=== PATIENT | female | born 1955 ===

== ENCOUNTER 2022-07-19 15:09 | Outpatient (REF) | payer OTHER, SELFPAY ==
--- NOTE | ~2022-07-19 | XR_ITS ---
EXAMINATION: LEFT HAND CLINICAL INFORMATION: Pain bilaterally COMPARISON: None TECHNIQUE: 3 views of left hand FINDINGS: There is mild diffuse osteopenia. There are changes of osteoarthritis in the first carpometacarpal joint. Soft tissues unremarkable. XR/XR hand RT min 3V IMPRESSION: Changes of osteoarthritis of the first carpometacarpal joint
--- NOTE | ~2022-07-19 | XR_ITS ---
EXAMINATION: LEFT HAND CLINICAL INFORMATION: Pain bilaterally COMPARISON: None TECHNIQUE: 3 views of left hand FINDINGS: There is mild diffuse osteopenia. There are changes of osteoarthritis in the first carpometacarpal joint. Soft tissues unremarkable. XR/XR hand LT min 3V IMPRESSION: Changes of osteoarthritis of the first carpometacarpal joint
== END 2022-07-19 15:10 | disposition home or self-care (01) ==
LOC: HO.HOSX 15:09
PROVIDERS: Visit Provider Physician Assistant
DX: M79.641 Pain in right hand (principal); M79.642 Pain in left hand
CPT/HCPCS: 73130

== ENCOUNTER 2022-07-23 08:33 | Outpatient (REF) | payer OTHER, SELFPAY ==
--- NOTE | ~2022-07-23 | MM_ITS ---
EXAMINATION: MM SCREENING DIGITAL BREAST TOMOSYNTHESIS, BILATERAL CLINICAL INFORMATION: Screening. Asymptomatic. COMPARISON: Mammography: 09/27/2018, 02/05/2016 TECHNIQUE: Digital breast tomosynthesis is performed in both the craniocaudal and mediolateral oblique views along with computer-aided detection (CAD). Synthesized 2D images are generated from the tomosynthesis. Additional left MLO view is provided. FINDINGS: There are scattered areas of fibroglandular density (ACR BI-RADS breast composition Category b). There are no significant masses, abnormal calcifications, or other abnormalities. Fine fibronodular parenchymal pattern is similar to prior studies. No developing density or architectural abnormality. Incidental low right axillary tail node is stable. The skin contours are smooth. No significant changes. MM/MM tomosynthesis screening BI IMPRESSION: No mammographic evidence of malignancy. ASSESSMENT: BI-RADS 2: Benign RECOMMENDATION: Routine annual mammography screening. This patient's information was entered into a reminder system with a target due date for their next mammogram.
[2022-07-23 09:08] LABS: MANUAL DIFF FLAG NO
[2022-07-23 10:03] LABS: Basophils Percent Auto 0.7 % (0-2); Eosinophils Absolute Auto 0.2 X10*3/uL (0.0-0.4); Eosinophils Percent Auto 2.7 % (0-4); Hematocrit 38.8 % (37.0-47.0); Hemoglobin 12.7 g/dl (12.0-16.0); Imm Gran Abs Auto 0.02 X10*3/uL (0.00-0.03); Imm Gran Pct Auto 0.3 % (0.0-0.4); Lymphocytes Absolute Auto 2.2 X10*3/uL (1.2-4.9); Lymphocytes Percent Auto 36.2 % (20-40); Mean Corpuscular HGB Conc 32.7 g/dl (31.0-35.0); Mean Corpuscular Hemoglobin 27.8 pg (27.0-33.0); Mean Corpuscular Volume 84.9 fL (80.0-98.0); Mean Platelet Volume 10.5 fL (9.4-12.3); Monocytes Absolute Auto 0.5 X10*3/uL (0.1-1.2); Monocytes Percent Auto 8.2 % (2-11); Neutrophils Absolute Auto 3.1 x10*3/uL (2.0-8.3); Neutrophils Percent Auto 51.9 % (45-73); Platelet Count 272 X10*3/uL (160-400); Red Blood Count 4.57 X10*6/uL (4.20-5.50); Red Cell Distribution Width 13.9 % (11.0-16.0)
[2022-07-23 10:35] LABS: Alanine Aminotransferase 15 U/L (0-31); Albumin Level 4.3 g/dL (3.5-5.0); Alkaline Phosphatase 89 U/L (39-117); Anion Gap 17 (12-20); Aspartate Amino Transferase 22 U/L (5-31); Bilirubin Total 0.6 mg/dL (0.0-1.0); Blood Urea Nitrogen 17 mg/dL (9-16); Calcium 9.4 mg/dL (8.4-10.2); Carbon Dioxide 21 mmol/L (22-29); Chloride 107 mmol/L (96-108); Cholesterol 200 mg/dL; Estimated Glomerular Filt Rate > 60; Glucose Random 95 mg/dL (60-115); HDL Cholesterol 56 mg/dL; LDL Cholesterol Calculated 106 mg/dl; Potassium 4.4 mmol/L (3.3-5.1); Sodium 141 mmol/L (135-145); Total Protein 7.4 g/dL (6.5-8.0); Triglycerides 191 mg/dL
[2022-07-23 10:57] LABS: TSH reflex Free T4 2.06 uIU/mL (0.32-4.0)
[2022-07-23 11:50] LABS: Vitamin B12 196 pg/mL (200-900)
[2022-07-23 15:16] LABS: Vitamin D 25-OH Total 11.3 ng/mL (>30)
== END 2022-07-23 08:34 | disposition home or self-care (01) ==
LOC: HO.MAMMO 08:33
PROVIDERS: PCP Family Medicine; Visit Provider Family Medicine
DX: D36.9 Benign neoplasm, unspecified site (principal); E55.9 Vitamin D deficiency, unspecified; E78.5 Hyperlipidemia, unspecified; I10 Essential (primary) hypertension; M25.50 Pain in unspecified joint; Z98.890 Other specified postprocedural states; Z12.31 Encounter for screening mammogram for malignant neoplasm of breast
CPT/HCPCS: 36415; 77063; 77067; 80053; 80061; 82306; 82607; 84443; 85025

== ENCOUNTER 2022-11-18 13:24 | Outpatient (REF) | payer OTHER, SELFPAY ==
--- NOTE | ~2022-11-18 | CT_ITS ---
EXAMINATION: CT CHEST SCREENING CLINICAL INFORMATION: Current smoker. 40 pack year history. 67 years old. COMPARISON: None available. TECHNIQUE: Multidetector volumetric CT imaging of the chest is performed without contrast using low dose technique. Additional 2D coronal and sagittal reformatted images and axial 3D maximum intensity projection (MIP) images are generated on the CT workstation. This CT examination was performed using dose optimization techniques as appropriate, variously including the following: *Automated exposure control *Adjustment of mA and/or kV according to patient size (this includes techniques or standardized protocols for targeted exams where dose is matched to indication/reason for exam; i.e. extremities or head) *Use of iterative reconstruction technique DLP: 65 mGy-cm FINDINGS: LUNGS: Central airways are patent. No significant bronchial wall thickening is seen. No bronchiectasis. No significant confluent parenchymal disease is seen. There is a region of some atelectasis/scar adjacent to the thoracic spine within the right lower lobe. There are some scattered sub-4 mm densities bilaterally. No significant emphysematous changes are seen. No suspicious lung nodules are appreciated. MEDIASTINUM: The visualized thyroid gland appears unremarkable. Heart normal size. No pericardial effusion. The ascending thoracic aorta measures up to 4.1 cm in diameter. No occlusive calcified plaque is seen. CORONARY ARTERY CALCIFICATION: Present. PLEURA: There is no pleural effusion. No pleural mass or thickening. AXILLA: No lymphadenopathy. UPPER ABDOMEN: Small hiatal hernia present. Patient appears be status post gastric surgery. Status post cholecystectomy. OSSEOUS STRUCTURES: No suspicious destructive bony lesions identified. Multilevel degenerative disc disease is seen. CT/CT lung screening IMPRESSION: No suspicious lung nodules identified. Enlarged ascending thoracic aorta to 4.1 cm in diameter. ASSESSMENT: Lung-RADS category 2: Benign RECOMMENDATION: Routine annual low-dose CT screening in 12 months.
== END 2022-11-18 13:25 | disposition home or self-care (01) ==
LOC: HO.CT 13:24
PROVIDERS: PCP Family Medicine; Visit Provider Physician Assistant Medical
DX: Z12.2 Encounter for screening for malignant neoplasm of respiratory organs (principal); F17.210 Nicotine dependence, cigarettes, uncomplicated
CPT/HCPCS: 71271; G0296

== ENCOUNTER 2023-11-08 15:10 | Outpatient (REF) | payer OTHER, MEDICARE, SELFPAY ==
[2023-11-08 16:17] LABS: MANUAL DIFF FLAG NO
[2023-11-08 16:23] LABS: Basophils Absolute Auto 0.1 X10*3/uL (0.0-0.2); Basophils Percent Auto 0.7 % (0-2); Eosinophils Absolute Auto 0.1 X10*3/uL (0.0-0.4); Eosinophils Percent Auto 1.9 % (0-4); Hematocrit 40.2 % (37.0-47.0); Hemoglobin 13.1 g/dl (12.0-16.0); Imm Gran Abs Auto 0.02 X10*3/uL (0.00-0.03); Imm Gran Pct Auto 0.3 % (0.0-0.4); Lymphocytes Absolute Auto 3.1 X10*3/uL (1.2-4.9); Lymphocytes Percent Auto 42.9 % (20-40); Mean Corpuscular HGB Conc 32.6 g/dl (31.0-35.0); Mean Corpuscular Hemoglobin 27.8 pg (27.0-33.0); Mean Corpuscular Volume 85.4 fL (80.0-98.0); Mean Platelet Volume 10.5 fL (9.4-12.3); Monocytes Absolute Auto 0.7 X10*3/uL (0.1-1.2); Monocytes Percent Auto 9.2 % (2-11); Neutrophils Absolute Auto 3.3 x10*3/uL (2.0-8.3); Platelet Count 300 X10*3/uL (160-400); Red Blood Count 4.71 X10*6/uL (4.20-5.50); Red Cell Distribution Width 13.2 % (11.0-16.0); White Blood Count 7.3 X10*3/uL (4.8-10.8)
[2023-11-08 17:12] LABS: Erythrocyte Sedimentation Rate 29 MM/HR (0-20)
[2023-11-08 17:42] LABS: Rheumatoid Factor < 13.0 IU/mL (<15.0)
[2023-11-08 17:55] LABS: Alanine Aminotransferase 17 U/L (0-31); Albumin Level 4.2 g/dL (3.5-5.0); Alkaline Phosphatase 95 U/L (39-117); Anion Gap 14 (12-20); Aspartate Amino Transferase 27 U/L (5-31); Bilirubin Direct 0.1 mg/dL (0.0-0.5); Bilirubin Total 0.3 mg/dL (0.0-1.0); Blood Urea Nitrogen 19 mg/dL (9-16); C Reactive Protein 0.16 mg/dL (< or = 0.50); Calcium 9.6 mg/dL (8.4-10.2); Carbon Dioxide 21 mmol/L (22-29); Chloride 108 mmol/L (96-108); Cholesterol 318 mg/dL (<200); Estimated Glomerular Filt Rate 49; Glucose Random 100 mg/dL (60-115); HDL Cholesterol 50 mg/dL (>40); LDL Cholesterol Calculated 190 mg/dL (<100); Magnesium 1.9 mg/dL (1.6-2.6); Potassium 4.2 mmol/L (3.3-5.1); Sodium 139 mmol/L (135-145); Total Protein 7.8 g/dL (6.5-8.0); Triglycerides 394 mg/dL (<150)
[2023-11-08 18:11] LABS: Vitamin B12 234 pg/mL (200-900)
[2023-11-08 18:19] LABS: Ferritin 9 ng/mL (10-250); TSH reflex Free T4 2.15 uIU/mL (0.32-4.0); Vitamin D 25-OH Total 10.5 ng/mL (>30)
[2023-11-15 15:27] LABS: ANA Pattern 2 Nuclear, Homogeneous; Anti Nuclear Antibody Screen POSITIVE (NEGATIVE); Anti Nuclear Antibody Titer 1:40 titer
== END 2023-11-08 15:11 | disposition home or self-care (01) ==
LOC: HO.HHCL 15:10
PROVIDERS: Visit Provider Family Medicine
DX: E78.5 Hyperlipidemia, unspecified (principal); M79.18 Myalgia, other site; G89.29 Other chronic pain; R53.83 Other fatigue; D50.9 Iron deficiency anemia, unspecified; Z98.84 Bariatric surgery status
CPT/HCPCS: 36415; 80048; 80061; 80076; 82306; 82607; 82728; 82746; 83735; 84443; 85025; 85652; 86038; 86039; 86140; 86431

== ENCOUNTER 2023-11-24 14:05 | Outpatient (REF) | payer OTHER, SELFPAY ==
--- NOTE | ~2023-11-24 | MM_ITS ---
EXAMINATION: BONE DENSITOMETRY CLINICAL INDICATION: Postmenopausal. COMPARISON: This is the patient's baseline examination. TECHNIQUE: Using a [employer] DXA System (software version: 13.1) manufactured by [employer], dual-energy x-ray absorptiometry was performed of the lumbar spine and left hip. The images are of good technical quality. Summary results are attached. FINDINGS: LEFT FEMUR, NECK: BMD 0.745 g/cm2, Z-score -1.0, T-score -2.1, osteopenia. LEFT FEMUR, TOTAL: BMD 0.788 g/cm2, Z-score -0.9, T-score -1.7, osteopenia. AP SPINE L1-L3 (excluding L4): The data of L1-L4 has been changed to exclude the L4 vertebral body, because degenerative sclerosis at this level may cause overestimation of lumbar spine density. BMD 0.854 g/cm2, Z-score -1.7, T-score -2.6, osteoporosis. IDENTIFIED RISK FACTORS: Menopause, height loss, low calcium intake, thiazide, current smoker. HISTORY OF FRACTURE: None listed. MEDICATIONS: Vitamin D. MM/XR DEXA axial skeleton IMPRESSION: 1. DIAGNOSIS: Osteoporosis based on the lowest T-score value of -2.6 in the lumbar spine applying World Health Organization criteria. 2. 10-YEAR FRACTURE RISK PREDICTION, FRAX: According to the guidelines, FRAX calculation should only be performed on patients in the osteopenia bone density category. Therefore, FRAX was not performed on this patient. 3. Treatment Recommendations: NOF guidelines recommend consideration for treatment in postmenopausal women and men age 50 and older presenting with the following: -A hip or vertebral (clinical or morphometric) fracture. -T-score less than or equal to -2.5 at the femoral neck or spine after appropriate evaluation to exclude secondary causes. -Low bone mass at the hip or spine and a 10-year fracture probability by FRAX of greater than or equal to 3% for hip fracture or greater than or equal to 20% for major osteoporotic fracture based on the [place] adapted WHO algorithm. 4. Other Recommendations: All treatment decisions require clinical judgment and consideration of individual patient factors, including patient preferences, comorbidities, previous drug use, risk factors not captured in the FRAX model (e.g. frailty, falls, vitamin D deficiency, increased bone turnover, interval significant decline in bone density) and possible under or overestimation of fracture risk by FRAX. Additional medical evaluation for secondary cause of low bone mineral density may be appropriate. FUTURE SCAN RECOMMENDATION: People with diagnosed cases of osteoporosis or at high risk for fracture should have regular bone mineral density tests. For patients eligible for Medicare, routine testing is allowed once every 2 years. The testing frequency can be increased to one year for patients who have rapidly progressing disease, those who are receiving or discontinuing medical therapy to restore bone mass, or have additional risk factors.
== END 2023-11-24 14:06 | disposition home or self-care (01) ==
LOC: HO.MAMMO 14:05
PROVIDERS: PCP Family Medicine; Visit Provider Family Medicine
DX: Z13.820 Encounter for screening for osteoporosis (principal); Z78.0 Asymptomatic menopausal state
CPT/HCPCS: 77080

== ENCOUNTER 2023-12-13 14:47 | Outpatient (AMB) | payer OTHER, SELFPAY ==
--- NOTE | 2023-12-13 14:52 | A.OFFVIS_ITS ---
Intake Vital Signs 12/13/23 14:54 Height 5 ft 5 in Weight 212 lb 11.937 oz BMI 35.4 BP 126/70 Blood Pressure Location Rt brachial Position Sitting Pulse 67 Pulse Source Pulse Oximeter Pulse Oximetry (%) 100 Oxygen Delivery Method Room Air Intake Visit Reasons: chronic myofascial pain Intake Note: New patient presents today for consult, referred by PCP. C/o whole body pain, julieth in low back, fatigue and L hand joint deformity. Saw [facility] ortho 2021 States she was diagnosed with osteoporosis and prescribed alendronate. She took it one time and it caused her to have jaw pain so she self stopped it. 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 Patient stated that over days she has been getting progressively more stiff especially with her hands, shoulders, neck, low back, knees. She has morning stiffness lasting about 10 minutes impro holger with moving around, she also gets if see sits down after a long day. Sometimes she has difficulty reaching with her shoulders above her head. She denies any swollen joints. Denies any skin rashes. Denies any fevers or weight loss. He stated that she was getting a dental procedure recently she was prescribed a steroid for 3 days and it significantly helped her symptoms. States that her daughter is diagnosed with rheumatoid arthritis. 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 Female Reproductive History Menstrual Total pregnancies: 2 Full term: 1 Ab induced: 1 Review of Systems Const Reports fatigue and Reports weakness Musc Reports arthralgias, Reports limited range of motion and Reports stiffness Skin/Breast Reports alopecia Neuro Reports weakness Psych Reports depression Endo Reports fatigue Physical Exam Vital Signs: Last Vital Signs Pulse 67 12/13/23 14:54 BP 126/70 12/13/23 14:54 Pulse Ox 100 12/13/23 14:54 Oxygen Delivery Method Room Air 12/13/23 14:54 BMI result Body Mass Index 35.4 Const General: cooperative, healthy appearing and comfortable Nutritional Appearance: obese Orientation/consciousness: patient oriented x3 Limitations: no limitations HEENT Head: Yes normocephalic and Yes atraumatic Mouth: moist mucous membranes Resp Effort & Inspection: normal respiratory effort and able to speak in complete sentences Auscultation: clear to auscultation bilaterally Cardio Rate: regular rate Skin General skin exam: no rashes or lesions noted Neuro General: patient oriented x3 Extrem Other: Osteoarthritic changes of both hands with squaring of bilateral 1st CMC joints No active synovitis both hands no swollen or tender joints both hands Normal range of motion of hands, wrists, elbows, shoulders without pain Normal range of motion of both knees without pain Normal nailfold capillaroscopy Assessment & Plan Assessment & Plan (1) OLYA positive: Code(s): R76.8 - Other specified abnormal immunological findings in serum Plan: This is a 68-year-old female who presents for evaluation of diffuse joint pain and stiffness. Clinical picture rather consistent with degenerative arthritis, however patient had a positive OLYA as well as mildly elevated inflammatory markers. Will order comprehensive serology to screen for underlying autoimmune rheumatic disease. Follow-up in about 4 weeks Plan I spent 47 minutes reviewing patient's chart, evaluating patient, ordering diagnostic workup, counseling patient and documenting in the chart Orders: Orders Anti Extractable Nuclear Ag Today M32.9 - Systemic lupus erythematosus, unspecified Anti DNA DS Antibody Today M32.9 - Systemic lupus erythematosus, unspecified Complement C3 Today M32.9 - Systemic lupus erythematosus, unspecified Complement C4 Today M32.9 - Systemic lupus erythematosus, unspecified C Reactive Protein Today M32.9 - Systemic lupus erythematosus, unspecified DNA Double Stranded-Crithidia Today M32.9 - Systemic lupus erythematosus, unspecified Erythrocyte Sedimentation Rate Today M32.9 - Systemic lupus erythematosus, unspecified Protein Creatinine Ratio, Ur Today M32.9 - Systemic lupus erythematosus, unspecified Sjogren's Antibodies Today M32.9 - Systemic lupus erythematosus, unspecified UA w Microscopic Today M32.9 - Systemic lupus erythematosus, unspecified Complete Blood Count Auto Diff Today M32.9 - Systemic lupus erythematosus, unspecified Hepatitis A,B,C Profile Today Z11.59 - Encounter for screening for other viral diseases Cyclic Citrullinated Peptide Today M25.50 - Pain in unspecified joint Thyroid Peroxidase Antibodies Today E07.9 - Disorder of thyroid, unspecified Comprehensive Met. Panel Today M32.9 - Systemic lupus erythematosus, unspecified Immunofixation Pnl, Serum Today M32.9 - Systemic lupus erythematosus, unspecified Protein Electrophoresis, Serum Today M32.9 - Systemic lupus erythematosus, unspecified Thyroglobulin Antibodies Today E07.9 - Disorder of thyroid, unspecified Coding Level of Care Code New Pt Level 4 (35500) Diagnoses OLYA positive R76.8
[2023-12-13 14:54] VITALS: BP 126/70; PULSE 67; O2SAT 100; BMI 35.4
== END 2023-12-13 15:19 | disposition home or self-care (01) ==
PROVIDERS: PCP Family Medicine; Visit Provider Student in an Organized Health Care Education/Training Program
DX: R76.8 Other specified abnormal immunological findings in serum (principal)
CPT/HCPCS: 99204

== ENCOUNTER 2023-12-13 14:47 | Outpatient (REF) | payer OTHER, MEDICARE, SELFPAY ==
[2023-12-13 16:11] LABS: MANUAL DIFF FLAG NO
[2023-12-13 17:36] LABS: Basophils Percent Auto 0.5 % (0-2); Eosinophils Absolute Auto 0.2 X10*3/uL (0.0-0.4); Eosinophils Percent Auto 2.5 % (0-4); Hematocrit 36.4 % (37.0-47.0); Imm Gran Abs Auto 0.01 X10*3/uL (0.00-0.03); Imm Gran Pct Auto 0.2 % (0.0-0.4); Lymphocytes Absolute Auto 2.4 X10*3/uL (1.2-4.9); Lymphocytes Percent Auto 39.5 % (20-40); Mean Corpuscular Hemoglobin 28.1 pg (27.0-33.0); Mean Corpuscular Volume 85.2 fL (80.0-98.0); Mean Platelet Volume 10.4 fL (9.4-12.3); Monocytes Absolute Auto 0.5 X10*3/uL (0.1-1.2); Monocytes Percent Auto 8.2 % (2-11); Neutrophils Absolute Auto 2.9 x10*3/uL (2.0-8.3); Neutrophils Percent Auto 49.1 % (45-73); Platelet Count 293 X10*3/uL (160-400); Red Blood Count 4.27 X10*6/uL (4.20-5.50); Red Cell Distribution Width 13.5 % (11.0-16.0)
[2023-12-13 17:46] LABS: Appearance Urine Cloudy; Color Urine Yellow; Glucose Urine UA Negative (Negative); Leukocyte Esterase Urine Trace (Negative); Nitrite Urine Negative (Negative); PH 5.5 (5.0-9.0); Specific Gravity - Urine 1.025 (1.005-1.025); UMIC TRIGGER UA YES; Urine Blood Negative (Negative); Urine Ketones Negative (Negative); Urine Protein 30 (1+) mg/dL (Neg-Trace)
[2023-12-13 18:05] LABS: Protein/Creatinine Ratio, Ur 0.21 (<0.2); Total Protein Urine Random 30 mg/dL (<12)
[2023-12-13 18:07] LABS: Bacteria Urine 2+ (None Seen); Hyaline Casts Urine 0-2 /LPF (0-2); RBC Urine 0-2 /HPF (0-2); WBC Urine 0-5 /HPF (0-5)
[2023-12-13 18:08] LABS: Alanine Aminotransferase 13 U/L (0-31); Alkaline Phosphatase 79 U/L (39-117); Anion Gap 15 (12-20); Aspartate Amino Transferase 20 U/L (5-31); Bilirubin Total 0.3 mg/dL (0.0-1.0); Blood Urea Nitrogen 17 mg/dL (9-16); C Reactive Protein 0.32 mg/dL (< or = 0.50); Calcium 9.4 mg/dL (8.4-10.2); Carbon Dioxide 24 mmol/L (22-29); Chloride 108 mmol/L (96-108); Estimated Glomerular Filt Rate > 60; Glucose Random 84 mg/dL (60-115); Potassium 3.7 mmol/L (3.3-5.1); Sodium 143 mmol/L (135-145); Total Protein 7.7 g/dL (6.5-8.0)
[2023-12-13 18:16] LABS: Erythrocyte Sedimentation Rate 55 MM/HR (0-20)
[2023-12-14 07:34] LABS: HBS Num1 289.71 mIU/mL (0-7.99); HBc Num1 2.88 S/CO (0.00-0.79); HBsAGNum1 0.27 S/CO (0.00-0.99); Hepatitis A Antibody IgM 0.17 Index (0-0.79); Hepatitis B Surface Antigen Negative (Negative); ~Hepatitis A Antibody IgM Nonreactive (Nonreactive); ~Hepatitis B Surface Antibody REACTIVE (Nonreactive); ~Hepatitis C Antibody Reactive (Nonreactive)
[2023-12-14 08:30] LABS: HBc Num2 2.87 S/CO; HBc Num3 2.78 S/CO; Hepatitis B Core Antibody Reactive (Nonreactive)
[2023-12-14 11:43] LABS: Complement C3 126 mg/dL (83-193)
[2023-12-14 21:53] LABS: Thyroglobulin Antibodies <1 IU/mL (< or = 1); Thyroid Peroxidase Antibodies <1 IU/mL (<9)
[2023-12-15 12:19] LABS: IgA 233 mg/dL (70-320); IgG 1147 mg/dL (600-1540); IgM 63 mg/dL (50-300)
[2023-12-15 15:33] LABS: Cyclic Citrullinated Peptide <16 UNITS
[2023-12-15 18:53] LABS: Prot Elec - Albumin 3.8 g/dL (3.8-4.8); Prot Elec - Alpha1 0.4 g/dL (0.2-0.3); Prot Elec - Alpha2 1.2 g/dL (0.5-0.9); Prot Elec - Beta 1 0.5 g/dL (0.4-0.6); Prot Elec - Beta 2 0.5 g/dL (0.2-0.5); Prot Elec - Total Protein 7.2 g/dL (6.1-8.1)
[2023-12-15 19:18] LABS: Anti DNA DS Antibody 3 IU/mL; Antibody to SS-A Antigen <1.0 NEG AI (<1.0 NEG); Antibody to SS-B Antigen <1.0 NEG AI (<1.0 NEG); SM/Ribonucleoprotein Ab <1.0 NEG AI (<1.0 NEG); Smith Protein <1.0 NEG AI (<1.0 NEG)
[2023-12-19 06:52] LABS: DNAds, Crithidia Antibody Negative (Negative)
== END 2023-12-13 14:48 | disposition home or self-care (01) ==
LOC: HO.LAB 14:47
PROVIDERS: PCP Family Medicine; Visit Provider Student in an Organized Health Care Education/Training Program
DX: M32.9 Systemic lupus erythematosus, unspecified (principal); M25.50 Pain in unspecified joint; Z11.59 Encounter for screening for other viral diseases; E07.9 Disorder of thyroid, unspecified; R53.83 Other fatigue; M81.0 Age-related osteoporosis without current pathological fracture; M21.942 Unspecified acquired deformity of hand, left hand
CPT/HCPCS: 36415; 80053; 81001; 82570; 82784; 84156; 84165; 85025; 85652; 86140; 86160; 86200; 86225; 86235; 86255; 86334; 86376; 86704; 86706; 86709; 86800; 86803; 87340

== ENCOUNTER 2023-12-20 12:39 | Outpatient (REF) | payer MEDICARE, OTHER, SELFPAY ==
--- NOTE | ~2023-12-20 | CT_ITS ---
EXAMINATION: CT CHEST SCREENING CLINICAL INFORMATION: Current smoker at 1 pack per day with history of 56 pack year. COMPARISON: CT lung screening 11/18/2022. TECHNIQUE: Multidetector volumetric CT imaging of the chest is performed without contrast using low dose technique. Additional 2D coronal and sagittal reformatted images and axial 3D maximum intensity projection (MIP) images are generated on the CT workstation. This CT examination was performed using dose optimization techniques as appropriate, variously including the following: *Automated exposure control *Adjustment of mA and/or kV according to patient size (this includes techniques or standardized protocols for targeted exams where dose is matched to indication/reason for exam; i.e. extremities or head) *Use of iterative reconstruction technique DLP: 61 mGy-cm FINDINGS: LUNGS: There is mild emphysema and bronchial wall thickening. A few scattered pulmonary micronodules are again seen and unchanged, none larger than 3 mm. Tsai images have been saved. The lungs are otherwise clear with no evidence of inflammation or concerning nodules. MEDIASTINUM: The ascending aorta remains prominent in size at 4.1 cm. CORONARY ARTERY CALCIFICATION: Moderate. PLEURA: There is no pleural effusion. No pleural mass or thickening. AXILLA: No lymphadenopathy. UPPER ABDOMEN: Status post cholecystectomy and gastric bypass. OSSEOUS STRUCTURES: Degenerative changes are present in the spine. CT/CT lung screening IMPRESSION: No concerning evidence of malignancy. There are a few unchanged pulmonary micronodules. Mild emphysema and stable 4.1 cm dilatation ascending aorta. Maximal dimension for a patient of 67 years of age is 4.2 cm.* ASSESSMENT: Lung-RADS category 2: Benign. RECOMMENDATION: Routine annual low-dose CT screening in 12 months. *Normal aortic diameters (in millimeters) Ascending aorta: 31+0.16 x age. Descending aorta: 21+0.16 x age. Reference: [employer] Cardiovascular J 2006 February; 40 (3): 175-178
== END 2023-12-20 12:40 | disposition home or self-care (01) ==
LOC: HO.CT 12:39
PROVIDERS: PCP Family Medicine; Visit Provider Nurse Practitioner Family
DX: Z12.2 Encounter for screening for malignant neoplasm of respiratory organs (principal); F17.210 Nicotine dependence, cigarettes, uncomplicated
CPT/HCPCS: 71271

== ENCOUNTER 2024-02-02 08:48 | Outpatient (REF) | payer OTHER, SELFPAY ==
--- NOTE | ~2024-02-02 | XR_ITS ---
EXAMINATION: XR FOOT, RIGHT CLINICAL INFORMATION: Right foot pain. Pain between second and third toes. COMPARISON: None available. TECHNIQUE: AP, lateral, and oblique views of the right foot. FINDINGS: Tarsometatarsal joints: there is osteoarthritis of the joints best appreciated on the lateral view likely involving at least the second and third tarsometatarsal joints manifested by marginal osteophytes and nonuniform joint space narrowing. There is a well-corticated area of ossification along the dorsal aspect of the naviculocuneiform joint perhaps related to old fracture or ossification of the capsule related to degenerative change or old trauma. Small calcaneal spurs. Remaining bones joints and soft tissues are unremarkable XR/XR foot RT min 3V IMPRESSION: 1. No acute abnormality. 2. Osteoarthritis of the tarsometatarsal joints. 3. Ossification along the dorsal aspect of the naviculocuneiform joint perhaps related to degenerative change or old trauma. 4. Small calcaneal spurs.
== END 2024-02-02 08:49 | disposition home or self-care (01) ==
LOC: HO.XRAY 08:48
PROVIDERS: PCP Family Medicine; Visit Provider Family Medicine
DX: M79.671 Pain in right foot (principal)
CPT/HCPCS: 73630

== ENCOUNTER 2024-02-12 14:31 | Outpatient (AMB) | payer OTHER, SELFPAY ==
--- NOTE | 2024-02-12 14:33 | MHC.OFFVIS ---
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 She is a smoker. She has also background of hyperlipidemia and hypertension. She is on hydrochlorothiazide 25 mg daily and atorvastatin 40 mg daily last LDL cholesterol was 190 after which atorvastatin was added. She had a screening CT scan which showed ascending aortic dilatation 4.1 cm. She is overweight and has dyspnea on exertion. She is saying she is able to walk 100 ft and then gets out of breath. She is saying this is due to her weight and smoking. No chest discomfort. She is saying she is using Chantix and trying to quit and struggles because her smokes and keep cigarettes inside the house which makes it difficult for her to quit. She also had sprained her ankle and currently has Larry wrap on the ankle and is unable to exercise. 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 Review of Systems Const Denies chills, Denies fatigue, Denies fever(s), Denies frequent falls, Denies weakness, Denies weight gain and Denies weight loss ENT Denies dizziness Card Denies chest pain, Denies leg edema, Denies lightheadedness, Denies palpitations, Denies dyspnea, Denies dyspnea on exertion and Denies orthopnea Resp Denies cough, Denies dyspnea and Denies dyspnea on exertion GI Denies bloating and Denies change in bowel habits Musc Denies muscle weakness, Denies numbness and Denies tingling Neuro Denies dizziness, Denies frequent falls, Denies numbness, Denies tingling and Denies weakness Endo Denies fatigue and Denies palpitations Physical Exam Vital Signs: Last Vital Signs Pulse 86 02/12/24 14:34 BP 130/70 02/12/24 14:34 BMI result Body Mass Index 35.3 GENERAL APPEARANCE: in no acute distress, pleasant. NECK: no carotid bruit, no jugular venous distention. SKIN: no suspicious lesions, warm and dry. HEART: no murmurs, regular rate and rhythm. LUNGS: clear to auscultation bilaterally. ABDOMEN: soft, nontender. EXTREMITIES: no edema. PERIPHERAL PULSES: equal. NEUROLOGIC: No gross deficits, AAO X 3 Office Procedures EKG Details: Sinus rhythm 86 beats per minute, normal axis, normal ECG, QTC 423 milliseconds. [id number], Complete Assessment & Plan Assessment & Plan (1) Ascending aorta dilatation: Code(s): I77.810 - Thoracic aortic ectasia Category: Medical (2) Essential hypertension: Code(s): I10 - Essential (primary) hypertension Category: Medical (3) Hyperlipidemia: Code(s): E78.5 - Hyperlipidemia, unspecified Category: Medical Plan 68-year-old female with background history of tobacco use, hypertension and hyperlipidemia presenting for abdominal CT chest showing mild ascending aortic dilatation of 4.1 cm. Aortic disease is associated with smoking, hypertension and hyperlipidemia and she has all 3 risk factors currently. Her blood pressure is currently controlled. Her LDL cholesterol was 190 and she has been started on atorvastatin 40 mg daily. She should have repeat fasting lipid panel. We discussed about smoking cessation and she is seriously thinking about it and is actively using Chantix. She has dyspnea on exertion with 100 ft exercise capacity currently. She thinks this is due to her weight and smoking. I have explained to her that we need to rule out coronary disease in her with a stress test. She has a sprained ankle currently and is unable to exercise. Will give her some time to recover and then arrange exercise stress test for her. If she cannot exercise then we will do a Lexiscan. I have explained this to the patient. She will follow-up with us in few months. Thank you for allowing me to participate in the care of your patient. Please feel free to contact me if you have any questions. Orders: Orders Lipid Panel Today E78.5 - Hyperlipidemia, unspecified Coding Level of Care Code Est Pt Level 4 (68323) Diagnoses Ascending aorta dilatation I77.810 Essential hypertension I10 Hyperlipidemia E78.5 CPT Codes EKG - CPT: 70476-[id number], Complete ([id number])
[2024-02-12 14:34] VITALS: BP 130/70; PULSE 86; BMI 35.3
== END 2024-02-12 15:00 | disposition home or self-care (01) ==
PROVIDERS: PCP Family Medicine; Visit Provider Internal Medicine Cardiovascular Disease
DX: I77.810 Thoracic aortic ectasia (principal); I10 Essential (primary) hypertension; E78.5 Hyperlipidemia, unspecified
CPT/HCPCS: 93010; 99214

== ENCOUNTER → 2024-02-12 14:31 | Outpatient (BNVA) | payer OTHER, SELFPAY | PROVIDERS: PCP Family Medicine; Visit Provider Internal Medicine Cardiovascular Disease | DX: I77.810 Thoracic aortic ectasia (principal); I10 Essential (primary) hypertension; E78.5 Hyperlipidemia, unspecified; Z79.899 Other long term (current) drug therapy | CPT/HCPCS: 93005 ==

== ENCOUNTER 2024-10-14 13:51 | Outpatient (REF) | payer OTHER, SELFPAY ==
--- OUTSIDE RECORDS SUMMARY | 2024-10-14 15:21 | XMS_ITS | Encounter Summary ---
Author Organization [employer] Address [address] [place] [address] [address] [place] [address] Care Team Providers Care Program Management Specialist Name Role Phone Gillian Randolph MD Primary Care Provider [phone] Nikos Can Unavailable Kang Gayle MD Unavailable Encounter Details Date Type Department Care Team (Late st Contact Info) Description 12/28/2023 Telephone [facility] [address] [place], [place] [phone] Gillian Randolph MD [address] [place], [place] [phone] Social History Tobacco Use Types Packs/Day Years Used Date Smoking Tobacco: Some Days Cigarettes Comments Unknown Sex and Gender Information Value Date Recorded Sex Assigned at Female 07/11/2022 10:15 AM EDT Legal Sex Female 10:15 AM EDT Gender Identity Choose not to disclose 10:15 AM EDT Sexual Orientation Choose not to disclose 2021 10:15 AM EDT documented as of this encounter Miscellaneous Notes * Telephone Encounter - Maria Alejandra Black RN - 12/28/2023 11:53 AM EDT Please review message below. Currently awaiting records from [facility] [place] but last imaging in [facility] was aCT scan for lung cancer screening done on 12/20/23 indicating stable 4.1 cm dilation of ascending aorta. * Telephone Encounter - Sarah Alvarez LPN - 12/28/2023 8:57 AM EDT Critical result line call received at this time. Nikki with [facility] Pulmon[facility] calling to report critical findings. Ct Scan with incidental findings of Thoracic aneurysm. Please update PCP now and follow with patient. Full report faxed to [phone] now. documented in this encounter Plan of Treatment Upcoming Encounters Date Type Department Care Team (Late st Contact Info) Description 10/23/2024 2:15 PM EST Office Visit [facility] [address] [place] [address] Gillian Randolph MD [address] [place] [address] documented as of this encounter Visit Diagnoses Not on filedocumented in this encounter Care Teams Program Management Specialist Relationship Specialty Start Date End Date Gillian Randolph MD [address] [place] [address] PCP - General Family Medicine 09/11/18 Nikos Can [address] [place] [address] Cardiology 09/24/24 Kang Gayle MD [address] [place] [address] Rheumatology 09/24/24 documented as of this encounter
--- OUTSIDE RECORDS SUMMARY | 2024-10-14 15:21 | XMS_ITS | Encounter Summary ---
Author Organization [facility] [employer] Address [address] [place] [address] [place] [address] Care Team Providers Care Band And Cuff Cutter Name Role Phone Gillian Randolph MD Primary Care Provider +1- [phone] Nikos Can Unavailable Kang Gayle MD Unavailable Encounter Details Date Type Department Care Team (Late st Contact Info) Description 11/08/2022 Abstract [facility] MEDICINE [address] [place] [address] [phone] Gillian Randolph MD [address] [place] [address] [phone] Social History Tobacco Use Types Packs/Day Years Used Date Smoking Tobacco: Never Assessed Comments Unknown Sex and Gender Information Value Date Recorded Sex Assigned at Female 07/11/2022 10:15 AM EDT Legal Sex Female 10:15 AM EDT Gender Identity Choose not to disclose 10:15 AM EDT Sexual Orientation Choose not to disclose 2021 10:15 AM EDT documented as of this encounter Plan of Treatment Upcoming Encounters Date Type Department Care Team (Late st Contact Info) Description 10/23/2024 2:15 PM EST Office Visit [facility] MEDICINE [address] [place] [address] [phone] Gillian Randolph MD [address] [place] [address] [phone] documented as of this encounter Procedures Procedure Name Priority Date/Time Associated Diagnosis Comments MAMMOGRAPHY Routine 07/23/2022 COLONOSCOPY Routine 02/07/2019 PAP SMEAR Routine 08/25/2016 12:00 AM EST documented in this encounter Results * Mammography (07/23/2022) Mammogram BIRADS 2 Anatomical Region Laterality Modality Other Historical Provider HEALTH MAINTENANCE Final Result * Colonoscopy (02/07/2019) Colonoscopy tubular adenoma with Dr. Harper Historical Provider HEALTH MAINTENANCE Final Result * Pap Smear (08/25/2016 12:00 AM EST) Swab [facility] Provider LAB CYTOLOGY ORDERABLES F inal Result IMAGING documented in this encounter Visit Diagnoses Not on filedocumented in this encounter Care Teams Band And Cuff Cutter Relationship Specialty Start Date End Date Gillian Randolph MD [address] [place] [phone] PCP - General Family Medicine 09/11/18 Nikos Can [address] [place] [address] Cardiology 09/24/24 Kang Gayle MD [address] [place] [address] Rheumatology 09/24/24 documented as of this encounter
--- OUTSIDE RECORDS SUMMARY | 2024-10-14 15:21 | XMS_ITS | Encounter Summary ---
Author Organization [employer] Address [address] [place] [address] Care Team Providers Care Associate Professor Of Literature Name Role Phone Gillian Randolph MD Primary Care Provider +1- [phone] Nikos Can Unavailable Kang Gayle MD Unavailable Reason for Visit * Reason Onset Date Comments Medication Question 05/31/2024 Encounter Details Date Type Department Care Team (Late st Contact Info) Description 05/31/2024 Telephone [facility] MEDICINE [address] [place], [place] [phone] Gillian Randolph MD [address] [place], [place] [phone] Medication Question Social History Tobacco Use Types Packs/Day Years [...] encounter Miscellaneous Notes * Telephone Encounter - Vinita Palacio - 05/31/2024 11:46 AM EDT Tc from pt requesting med refill for medication sertraline (Zoloft) 50 MG tablet . Medication is not on recent med list. Pharmacy: [facility] #[facility] NANDA [address] documented in this encounter Plan of Treatment Upcoming Encounters Date Type Department Care Team (Late st Contact Info) Description 10/23/2024 2:15 PM EST Office Visit [facility] MEDICINE [address] [place] [address] Gillian Randolph MD [address] [place] [address] documented as of this encounter Visit Diagnoses Not on filedocumented in this encounter Care Teams Associate Professor Of Literature Relationship Specialty Start Date End Date Gillian Randolph MD [address] [place], [place] [phone] PCP - General Family Medicine 09/11/18 Nikos Can [address] [place] [address] Cardiology 09/24/24 Kang Gayle MD [address] [place] [address] Rheumatology 09/24/24 documented as of this encounter
--- OUTSIDE RECORDS SUMMARY | 2024-10-14 15:21 | XMS_ITS | Encounter Summary ---
Author Organization [facility] [employer] Address [address] [place] [address] 7 [place] [address] Care Team Providers Care Senior Loan Officer Name Role Phone Gillian Randolph MD Primary Care Provider +1- [phone] Nikos Can Unavailable Kang Gayle MD Unavailable Encounter Details Date Type Department Care Team (Late st Contact Info) Description 01/03/2023 Orders Only [facility] PEDS [address] [place], [place] [phone] Marilu Bell LPN Social History Tobacco Use Types Packs/Day Years [...] Description 10/23/2024 2:15 PM EST Office Visit [facility] MEDICINE [address] [place] [address] Gillian Randolph MD [address] [place], [place] [phone] documented as of this encounter Visit Diagnoses Not on filedocumented in this encounter Care Teams Senior Loan Officer Relationship Specialty Start Date End Date Gillian Randolph MD [address] [place], [place] [phone] PCP - General Family Medicine 09/11/18 Nikos Can [address] [place] [address] Cardiology 09/24/24 Kang Gayle MD [address] [place] [address] Rheumatology 09/24/24 documented as of this encounter
--- OUTSIDE RECORDS SUMMARY | 2024-10-14 15:21 | XMS_ITS | Encounter Summary ---
Author Organization [employer] Address [address] [place] [address] 7 [place] [address] Care Team Providers Care Technical Training Specialist Name Role Phone Gillian Randolph MD Primary Care Provider +1- [phone] Nikos Can Unavailable Kang Gayle MD Unavailable Reason for Visit * Reason Comments Pre-visit Planning Pre-visit planning - LVM Encounter Details Date Type Department Care Team ([facility] st Contact Info) Description 10/10/2024 Patient Outreach [facility] MEDICINE [address] [place], [place] [phone] Gillian Randolph MD [address] [place], [place] [phone] Pre-visit Planning (Pre-visit planning - LVM ) Social History Tobacco Use Types Packs/Day Years Used Date Smoking Tobacco: Some Days Cigarettes Comments Unknown Sex and Gender Information Value Date Recorded Sex Assigned at Female 07/11/2022 10:15 AM EDT Legal Sex Female 10:15 AM EDT Gender Identity Choose not to disclose 10:15 AM EDT Sexual Orientation Choose not to disclose 2021 10:15 AM EDT documented as of this encounter Progress Notes * Carmel Campbell - 10/10/2024 9:46 AM EST CLEMENTINE Segura placed outbound call to patient to complete pre-visit planning. No answer at this time. Patient name and were not confirmed. CC left voicemail requesting return call. Direct contact information provided. documented in this encounter Plan of Treatment Upcoming Encounters Date Type Department Care Team (Late st Contact Info) Description 10/23/2024 2:15 PM EST Office Visit [facility] MED[facility]INE [address] [place] [address] Gillian Randolph MD [address] [place] [address] documented as of this encounter Visit Diagnoses Not on filedocumented in this encounter Care Teams Technical Training Specialist Relationship Specialty Start Date End Date Gillian Randolph MD [address] [place], [place] [phone] PCP - General Family Medicine 09/11/18 Nikos Can [address] [place] [address] Cardiology 09/24/24 Kang Gayle MD [address] [place] [address] Rheumatology 09/24/24 documented as of this encounter
--- OUTSIDE RECORDS SUMMARY | 2024-10-14 15:21 | XMS_ITS | Encounter Summary ---
Author Organization [employer] Address [address] [place] [address] 7t [place] [address] Care Team Providers Care Manager Of Learning Name Role Phone Gillian Randolph MD Primary Care Provider +1- [phone] Nikos Can Unavailable Kang Gayle MD Unavailable Reason for Visit * Reason Onset Date Comments Breast Cancer Screening 09/27/2024 Encounter Details Date Type Department Care Team ([facility] st Contact Info) Description 09/27/2024 Telephone [facility] MED & PEDS [address] [place] [address] Jerri Verma MA Breast Cancer Screening Social History Tobacco Use Types Packs/Day Years [...] encounter Miscellaneous Notes * Telephone Encounter - Jerri Verma MA - 09/27/2024 11:45 AM EST Patient contacted 09/27/2510:45 AM to remind them that mammogram for breast cancer screening is due. Lvm advising to call centralized scheduling at [facility]: [phone]. Faxed mammo order to centralized scheduling, received confirmation, and sent to scan. documented in this encounter Plan of Treatment Upcoming Encounters Date Type Department Care Team (Late st Contact Info) Description 10/23/2024 2:15 PM EST Office Visit [facility] MEDICINE [address] [place] [address] Gillian Randolph MD [address] [place] [address] documented as of this encounter Visit Diagnoses Not on filedocumented in this encounter Care Teams Manager Of Learning Relationship Specialty Start Date End Date Gillian Randolph MD [address] [place] [address] PCP - General Family Medicine 09/11/18 Nikos Can [address] [place] [address] Cardiology 09/24/24 Kang Gayle MD [address] [place] [address] Rheumatology 09/24/24 documented as of this encounter
--- OUTSIDE RECORDS SUMMARY | 2024-10-14 15:21 | XMS_ITS | Encounter Summary ---
Author Organization [employer] Address [address] [place] [address] 7 [place] [address] Care Team Providers Care Payer Specialist Name Role Phone Gillian Randolph MD Primary Care Provider +1- [phone] Nikos Can Unavailable Kang Gayle MD Unavailable Reason for Referral * Imaging (Routine) - Closed Specialty Diagnoses / Procedures Referred By Contac t Referred To Contact Radiology Diagnoses Screening mammogram for breast cancer Procedures BI Mammogram Screening Tomosynthesis Bilateral Gillian Randolph MD [address] [place] [phone] Phone: tel: fax: [address] Phone: tel: fax: Referral ID Status Reason Start Date Expiration Date Visits Re quested Visits Authorized [id number] Closed 09/27/2024 09/27/2025 1 1 Encounter Details Date Type Department Care Team (Late st Contact Info) Description 09/24/2024 Orders Only [facility] MEDICINE [address] [place] [address] [phone] Gillian Randolph MD [address] [place] [address] [phone] Dyslipidemia (Primary Dx); Hypomagnesemia; Iron deficiency anemia, unspecified iron deficiency anemia type; Age-related osteoporosis without current pathological fracture; Essential hypertension; Prediabetes; Chronic myofascial pain; Screening mammogram for breast cancer Social History Tobacco Use Types Packs/Day Years [...] Description 10/23/2024 2:15 PM EST Office Visit [facility] MED[facility]INE [address] [place], [place] [phone] Gillian Randolph MD [address] [place] [address] Scheduled Orders Name Type Priority Associated Diagnoses Orde r Schedule Hemoglobin A1c Lab Routine Prediabetes Expected: 09/24/2024 (Approximate), Expires: 09/24/2025 Hepatic Function Panel Lab Routine Dyslipidemia Expected: 09/24/2024, Expires: 09/24/2025 Magnesium Lab Routine Hypomagnesemia Expected: 09/24/2024, Expires: 09/24/2025 Lipid Panel, Standard Lab Routine Dyslipidemia Expected: 09/24/2024, Expires: 09/24/2025 Basic Metabolic Panel Lab Routine Essential hypertension Expected: 09/24/2024, Expires: 09/24/2025 TSH with Reflex to Free T4 Lab Routine Iron deficiency anemia, unspecified iron deficiency anemia type Expected: 09/24/2024 (Approximate), Expires: 09/24/2025 CBC auto differential Lab Routine Iron deficiency anemia, unspecified iron deficiency anemia type Expected: 09/24/2024, Expires: 09/24/2025 Vitamin D, 25-Hydroxy, Total, Immunoassay Lab Routine Age-related osteoporosis without current pathological fracture Expected: 09/24/2024 (Approximate), Expires: 09/24/2025 BI Mammogram Screening Tomosynthesis Bilateral Imaging Routine Screening mammogram for breast cancer Expected: 09/27/2024, Expires: 11/25/2025 documented as of this encounter Visit Diagnoses Diagnosis Dyslipidemia- Primary Other and unspecified hyperlipidemia Hypomagnesemia Disorders of magnesium metabolism Iron deficiency anemia, unspecified iron deficiency anemia type Age-related osteoporosis without current pathological fracture Essential hypertension Unspecified essential hypertension Prediabetes Other abnormal glucose Chronic myofascial pain Screening mammogram for breast cancer Pulmonary emphysema, unspecified emphysema type (CMS/HCC) Recurrent major depression in partial remission (CMS/HCC) Major depressive disorder, recurrent episode, in partial or unspecified remission Ascending aorta dilatation (CMS/HCC) Thoracic aneurysm without mention of rupture documented in this encounter Care Teams Payer Specialist Relationship Specialty Start Date End Date Gillian Randolph MD [address] [place] [address] PCP - General Family Medicine 09/11/18 Nikos Can [address] [place] [address] Cardiology 09/24/24 Kang Gayle MD [address] [place] [address] Rheumatology 09/24/24 documented as of this encounter
--- OUTSIDE RECORDS SUMMARY | 2024-10-14 15:21 | XMS_ITS | Clinical Summary ---
Author Organization [employer] Address [address] [place] [address] 7[address] [place] [address] Care Team Providers Care Dry Food Products Mixer Name Role Phone Gillian Randolph MD Primary Care Provider [phone]- [phone] Nikos Can Unavailable Kang Gayle MD Unavailable Allergies No known active allergies Medications Cyanocobalamin (B-12) 1000 MCG capsule Take 1 capsule by mouth in the morning. 2 Active hydroCHLOROthiazi de (HYDRODiuril) 25 MG tablet Take 1 tablet (25 mg) by mouth in the morning. 30 tablet 11 4 11/07/19 25 Active atorvastatin (Lipitor) 40 MG tabletIndications :Dyslipidemia Take 1 tablet (40 mg) by mouth in the morning. 90 tablet 3 4 Active cholecalciferol (Vitamin D-3) 50 MCG (1999 UT) capsuleIndication s:Osteoporosis, unspecified osteoporosis type, unspecified pathological fracture presence Take 1 capsule (50 mcg) by mouth in the morning. 90 capsule 3 4 Active calcium carbonate (Tums) 500 MG chewable tabletIndications :Osteoporosis, unspecified osteoporosis type, unspecified pathological fracture presence Take 2 tabs po daily 180 tablet 3 4 Active alendronate (Fosamax) 70 MG tabletIndications :Osteoporosis, unspecified osteoporosis type, unspecified pathological fracture presence Take 1 tablet (70 mg) by mouth every 7 (seven) days. Take in the morning with a full glass of water, on an empty stomach, and do not take anything else by mouth or lie down for the next 30 min. 4 tablet 11 4 11/27/19 25 Active varenicline (Chantix) 1 MG tablet TAKE 1 TABLET BY MOUTH TWICE DAILY AFTER MEALS WITH GLASS OF WATER 60 tablet 11 4 Active magnesium 250 MG tabletIndications :Hypomagnesemia TAKE 1 TABLET BY MOUTH EVERY NIGHT AT BEDTIME 90 tablet 3 4 Active sertraline (Zoloft) 50 MG tabletIndications :Depression, unspecified depression type Take 1 tablet (50 mg) by mouth Once per day. 90 tablet 3 4 Active sertraline (Zoloft) 100 MG tablet Take 1 tablet (100 mg) by mouth Once per day. 90 tablet 3 4 07/06/20 25 Active Active Problems Problem Noted Date Diagnosed Date Cardiac risk counseling 01/03/2024 Overview (02/14/2024): Calculated 01/03/24: Very High Risk The 10-year ASCVD risk score (Nayan DK, et al., 2019) is: 21.8% Values used to calculate the score: Age: 68 years Sex: Female Is Non- : No Diabetic: No Tobacco smoker: Yes Systolic Blood Pressure: 159 mmHg Is BP treated: No HDL Cholesterol: 50 mg/dL Total Cholesterol: 318 mg/dL Lab Results Component Value Date LDLCHOL 116 (H) 09/08/2020 -Tobacco cessation: encouraged -Statin therapy: atorvastatin 40, restarted 11/17/2023, check FLP 2 months and increase statin if LDL > 100 -Importance of moderate physical activity and nutrition interventions discussed -seen by [facility] 02/11/[address] Nikos Can MD, stress testordered Ascending aorta dilatation 01/01/2024 Overview (02/14/2024): -CT for lung cancer screening 12/20/23 revealed stable 4.1 cm dilatation of ascending aorta -referral for vascular surgery placed 01/01/24 -seen by [facility] 02/11/[address] Nikos Can MD, stress testordered Assessment & Plan (01/01/2024 11:51 AM EDT): Note addended 01/01/24 -CT for lung cancer screening 12/20/23 revealed stable 4.1 cm dilatation of ascending aorta -referral for vascular surgery placed 01/01/24 Age-related osteoporosis wit hout current pathological fracture 11/27/2023 Overview (01/01/2024): -diagnosed on DEXA 11/2023 -Fosamax started 11/27/2023, pt was not able to tolerate self discontinued -Discussed DEXA results and FRAX risk. -Discussed with the patient all the options for osteoporosis prevention and advised: -Ca+D supplements 1200 mg po qd/800 MIU -Weight bearing exercises -Adequate protein intake -Patient verbalized understanding and agreed plan will repeat DEXA in 2 years S/P gastric bypass 11/08/2023 Overview (11/08/2023): - Will check for vitamin deficiencies Assessment & Plan (11/08/2023 3:29 PM EST): - Will check for vitamin deficiencies COPD (chronic obstructive pulmonary disease) Overview (11/08/2023): - Doing well with cutting down on Tobacco consumption Assessment & Plan (11/08/2023 3:29 PM EST): - Doing well with cutting down on Tobacco consumption Physical exam, annual 11/08/2023 Overview (11/08/2023): -Normal growth and development. -Anticipatory guidance discussed. -Preventative care / harm reduction discussed. Chronic myofascial pain 11/08/2023 Overview (09/24/2024): -Given improvement with steroids taken for respiratory virus, polymyalgia rhumatica is a possibility. Will check labs including ESR and CRP. - Referral made to Rheumatology for further evaluation and management 11/08/23 - Will order DEXA scan for further evaluation 11/08/23 -seen by Dr. Hernández 12/18/2023 linical picture rather consistent with degenerative arthritis, however patient had a positive OLYA as well as mildly elevated inflammatory markers. Will order comprehensive serology to screen for underlying autoimmune rheumatic disease. Assessment & Plan (11/12/2023 9:31 AM EST): -Given improvement with steroids taken for respiratory virus, polymyalgia rhumatica is a possibility. Will check labs including ESR and CRP. - Referral made to Rheumatology for further evaluation and management 11/08/23 - Will order DEXA scan for further evaluation 11/08/23 Hypomagnesemia 11/08/2023 Iron deficiency anemia 11/08/2023 Post-menopausal 11/08/2023 Preventative health care 07/18/2023 Overview (11/08/2023): -next physical exam due after 11/08/24 -eye care facilitated by -dental home is Assessment & Plan (11/08/2023 2:17 PM EST): -next physical exam due after 11/08/24 -eye care facilitated by -dental home is Dyslipidemia 11/21/2018 Overview (11/27/2023): Lab Results Component Value Date CHOLESTEROL 217 (H) 09/08/2020 HDLCHOL 53 09/08/2020 LDLCHOL 116 (H) 09/08/2020 CHOLHDLRAT 4.1 09/08/2020 NONHDLCHOL 164 (H) 09/08/2020 -continue lifestyle modifications -restart atorvastatin 40mg 11/27/23 Assessment & Plan (11/08/2023 2:04 PM EST): Lab Results Component Value Date CHOLESTEROL 217 (H) 09/08/2020 HDLCHOL 53 09/08/2020 LDLCHOL 116 (H) 09/08/2020 CHOLHDLRAT 4.1 09/08/2020 NONHDLCHOL 164 (H) 09/08/2020 -continue lifestyle modifications Recurrent major depression in partial remission 11/21/2018 Overview (11/08/2023): - No suicidal or Homicidal ideation Assessment & Plan (11/08/2023 2:30 PM EST): - No suicidal or Homicidal ideation Essential hypertension 09/27/2018 Overview (11/08/2023): -Blood pressure is elevated at today's visit 11/08/23 -Continue lifestyle modifications -Start hydrochlorothiazide 25 mg once daily. Assessment & Plan (11/08/2023 2:56 PM EST): -Blood pressure is elevated at today's visit (152/80) 11/08/23 -Continue lifestyle modifications - Provided BP monitor and advised patient to keep a record of BP readings. -Will call in two weeks to check on Blood pressure. -Start hydrochlorothiazide 25 mg once daily 11/08/23 Tobacco dependence syndrome 09/27/2018 Overview (11/08/2023): -Cigg/day: -Age started: early teens -Total years smokin -Pack year history: 50 pack-year Encouraged smoking cessation resources such as pharmacomtherapy, [facility] smoking cessation group, and [facility] pharmacy smoking cessation clinic Discussed USPSTF recommends annual lung cancer screening with low dose CT in people who meet the following criteria: -ages 50 to 80 years. -have a 20 pack-year smoking history. -currently smoke cigarettes or quit within the past 15 years. -LDCT: Referred to thoracic surgery on 07/07/22 for screening. Assessment & Plan (11/08/2023 3:31 PM EST): -Cigg/day: Up to 6 -Age started: early teens -Total years smokin -Pack year history: 50 pack-year Encouraged smoking cessation resources such as pharmacomtherapy, [facility] smoking cessation group, and [facility] pharmacy smoking cessation clinic Discussed USPSTF recommends annual lung cancer screening with low dose CT in people who meet the following criteria: -ages 50 to 80 years. -have a 20 pack-year smoking history. -currently smoke cigarettes or quit within the past 15 years. -LDCT: Referred to thoracic surgery on 07/07/22 for screening. Tubular adenoma 09/27/2018 Overview (06/20/2024): -Colonoscopy on 02/07/2019 where a hyperplastic polyp was found. She is due for a repeat in 5 years because of family history and personal history of tubular adenoma -outreach done 06/20/24 via telephone to advise scheduling Assessment & Plan (11/08/2023 2:05 PM EST): -Colonoscopy on 02/07/2019 where a hyperplastic polyp was found. She is due for a repeat in 5 years because of family history and personal history of tubular adenoma Encounters Date Type Department Care Team Description 10/10/2024 Patient Outreach [facility] [address] [place] [address] Gillian Randolph MD Pre-visit Planning (Pre-visit planning - LVM ) 09/27/2024 Telephone [facility] [address], [place] [phone] Jerri Verma MA Breast Cancer Screening 09/24/2024 Orders Only [facility] [address] [place] [address] Gillian Randolph MD Dyslipidemia (Primary Dx); Hypomagnesemia; Iron deficiency anemia, unspecified iron deficiency anemia type; Age-related osteoporosis without current pathological fracture; Essential hypertension; Prediabetes; Chronic myofascial pain; Screening mammogram for breast cancer 08/19/2024 Telephone [facility] [address] [place] [address] Jerri Verma MA October Recall from Last 3 Months Immunizations Name Administration Dates Next Due Hep A, Adult 11/08/2023 Influenza Injectable Quadriv alant Preservative Free IIV4 MDCK 08/10/2021 Influenza injectable quadriv alent IIV4 with preservative 06/14/2019,07/30/2018 Influenza injectable quadrivalent preservative f ree 07/02/2020,08/25/2016 Influenza, IIV3, injectable 07/04/2014 MMR 04/13/1999 Pfizer Covid-19 Vaccine 12+ 11/08/2023 Pneumococcal Conjugate PCV 13 04/13/1999 Pneumococcal Conjugate PCV 20 11/08/2023 Pneumococcal Polysaccharide PPSV23 07/04/2014 Tdap 07/04/2014 Family History Medical History Relation Name Comments Rheum arthritis Daughter Colon cancer Father Lung cancer Mother Relation Name Status Comments Daughter Father Mother Social History Tobacco Use Types Packs/Day Years Used Date Smoking Tobacco: Some Days Cigarettes Tobacco Cessation:Ready to Q uit: Not Asked; Counseling Given: Not Answered Comments Unknown Sex and Gender Information Value Date Recorded Sex Assigned at Female 07/11/2022 10:15 AM EDT Legal Sex Female 10:15 AM EDT Gender Identity Choose not to disclose 10:15 AM EDT Sexual Orientation Choose not to disclose 2021 10:15 AM EDT Last Filed Vital Signs Vital Sign Reading Time Taken Comments Blood Pressure 159/84 11/08/2023 2:31 PM EST Pulse 106 11/08/2023 2:31 PM EST Temperature 37.2 ??C (98.9 ??F) 11/08/2023 2:31 PM ES T Respiratory Rate 20 11/08/2023 2:31 PM EST Oxygen Saturation 96% 11/08/2023 2:31 PM EST Inhaled Oxygen Concentration - - Weight - - Height 169.5 cm (5' 6.75 ) 11/08/2023 2:31 PM ES T Body Mass Index - - Plan of Treatment Upcoming Encounters Date Type Department Care Team (Late st Contact Info) Description 10/23/2024 2:15 PM EST Office Visit [facility] [address] [place] [address] Gillian Randolph MD [address] [place] [address] Health Maintenance Due Date Last Done Comments CT Colonography 1956 Depression Screening 1956 FIT DNA/Cologuard 1956 FIT 1956 FOBT 1956 SDOH Screening 1956 Sigmoidoscopy 1956 Alcohol/Substance Use Screening 1968 Zoster Vaccines (1 of 2) 2006 RSV Patients and Patients Aged 60 years or older (1 - Risk 60-74 years 1-dose series) 2016 Colonoscopy 02/08/2024 02/07/2019 Colorectal Cancer Screening 02/08/2024 Hepatitis A Vaccines (2 of 2 - Risk 2-dose series) 05/08/2024 11/08/2023 COVID-19 Vaccine ( season) 2024 11/08/2023, 08/10/2021, 10/22/2020, Additional history exists Influenza Vaccine (#1) 2024 , 07/02/2020, 06/14/2019, Additional history exists DTaP/Tdap/Td Vaccines (2 - Td or Tdap) 07/04/2024 07/04/2014 Mammogram 07/23/2024 07/23/2022, 07/12, 09/28/2018 Diabetes: Hemoglobin A1C 11/08/2024 11/08/2023 Tobacco Screening 11/08/2024 11/08/2023 Lipid Panel 11/08/2028 11/08/2023, 07/12, 09/08/2020 Pneumococcal Vaccine: 50+ Years Completed 11/08/2023, 07/04/2014, 04/13/1999 Hepatitis C Screening Completed 12/13/2023 HIB Vaccines Aged Out No longer eligi ble based on patient's age to complete this topic HPV Vaccines Aged Out No longer eligi ble based on patient's age to complete this topic Hepatitis B Vaccines Aged Out No long er eligible based on patient's age to complete this topic IPV Vaccines Aged Out No longer eligi ble based on patient's age to complete this topic Meningococcal Vaccine Aged Out No andrea sveta eligible based on patient's age to complete this topic RSV under 20 months Aged Out No longe r eligible based on patient's age to complete this topic Rotavirus Vaccines Aged Out No longer eligible based on patient's age to complete this topic Procedures Procedure Name Priority Date/Time Associated Diagnosis Comments HEPATITIS PANEL, GENERAL Routine 12/13/2023 4:08 PM EDT POCT GLYCATED HEMOGLOBIN, TOTAL Routine 11/08/2023 3:25 PM EST Diabetic retinopathy screening LIPID PANEL, STANDARD Routine 11/08/2023 3:20 PM EST Dyslipidemia MAMMOGRAPHY Routine 07/23/2022 HM COLONOSCOPY Routine 02/07/2019 from Last 3 Months or Most Recently Relevant to Health Maintenance Results * (ABNORMAL) Hepatitis Panel, General (12/13/2023 4:08 PM EDT) Hepatitis A IgM Nonreactive Nonreactive [facility] Comment:IgM antibodies to STARR V not detected; does not exclude earlyacute or recovered HAV infection. ~Hepatitis B Surface Antibody REACTIVE Nonreactive [facility] Comment:REACTIVE: > 11.99 mI U/mL Hepatitis B Core Antibody Reactive Nonreactive [facility] Comment:Presumptive evidence of anti-HBc. Hepatitis C Antibody Reactive(A) Nonreactive [facility] Comment:Presumptive evidence of antibodies to HCV. Hepatitis B Surface Ag Negative Negative [facility] 12/13/2023 4:08 PM EDT 12/13/2023 4:08 PM EDT Generic External Data Provider LAB BLOOD ORDERAB LES Final Result [facility] [address] [place] [phone] * (ABNORMAL) POCT A1C (11/08/2023 3:25 PM EST) Hemoglobin A1C 6.1(A) 4.0 - 6.0 % QC Media Lot # [id number] Lot# Expiration Date Blood 11/08/2023 3:25 PM EST Gillian Randolph MD POINT OF CARE TEST ENTER/E DIT ORDERABLES Final Result * (ABNORMAL) Lipid Panel, Standard (11/08/2023 3:20 PM EST) Triglycerides 394(H) <150 mg/dL [facility] Comment:Desirable Triglyceri de: less than 150 mg/dLBorderline High Triglyceride 150-199 mg/dLHigh Triglyceride: 200-499 mg/dLVery High Triglyceride: greater than or equal to 5OO mg/dL Cholesterol 318(H) <200 mg/dL [facility] Comment:Desirable Cholestero l: less than 200 mg/dLBorderline High Cholesterol: 200-239 mg/dLHigh Cholesterol: greater than 239 mg/dL LDL Cholesterol Calculated 190(H) <100 mg/dL [facility] Comment:Desirable LDL: less than 100 mg/dLNear Optimal/Above Optimal LDL: 110- 129 mg/dLBorderline High LDL: 130-159 mg/dLHigh LDL: 160-189 mg/dLVery High LDL: greater than or equal to 190 mg/dL HDL Cholesterol 50 >40 mg/dL [facility] Comment:Desirable HDL: great er than 40 mg/dL Note: This HDL assay may give artificially low results in patients with liver disease. Blood Venous blood specimen / Unknown 11/08/2023 3:20 PM EST 11/08/2023 4:13 PM EST Gillian Randolph MD LAB BLOOD ORDERABLES Final Result [facility] [address] [place] [phone] * Mammography (07/23/2022) Mammogram BIRADS 2 Anatomical Region Laterality Modality Other Historical Provider HEALTH MAINTENANCE Final Result * Colonoscopy (02/07/2019) Colonoscopy tubular adenoma with Dr. Harper Historical Provider HEALTH MAINTENANCE Final Result from Last 3 Months or Most Recently Relevant to Health Maintenance Insurance [employer] [facility] Care Teams Dry Food Products Mixer Relationship Specialty Start Date End Date [place], [place] Gillian [address] [place] [id number] PCP - General Family Medicine 09/11/18 Nikos Can [address] [place] [address] Cardiology 09/24/24 Kang Gayle MD [address] [place] [address] Rheumatology 09/24/24
== END 2024-10-14 13:52 | disposition home or self-care (01) ==
LOC: HO.MAMMO 13:51
PROVIDERS: PCP Family Medicine; Visit Provider Family Medicine
DX: Z12.31 Encounter for screening mammogram for malignant neoplasm of breast (principal)
CPT/HCPCS: 77063; 77067

== ENCOUNTER → 2024-10-14 14:00 | Outpatient (BNV) | payer OTHER, SELFPAY | PROVIDERS: PCP Family Medicine; Visit Provider Internal Medicine | DX: Z12.31 Encounter for screening mammogram for malignant neoplasm of breast (principal) | CPT/HCPCS: 77063; 77067 ==

== ENCOUNTER 2024-12-16 11:43 | Outpatient (REF) | payer OTHER, SELFPAY ==
[2024-12-16 13:31] LABS: Cholesterol 214 mg/dL (<200); HDL Cholesterol 48 mg/dL (>40); Triglycerides 402 mg/dL (<150)
--- OUTSIDE RECORDS SUMMARY | 2024-12-16 14:13 | XMS_ITS | Encounter Summary ---
Author Organization [employer] Address [address] [place] [address] [address] [place] [address] Care Team Providers Care Cigarette Making Machine Catcher Name Role Phone Gillian Randolph MD Primary Care Provider +1- [phone] Nikos Can Unavailable Kang Gayle MD Unavailable Encounter Details Date Type Department Care Team (Latest Contact Info) Description 12/16/2024 10:30 AM EDT Office Visit [facility] [address] [place], [place] [phone] Gillian Randolph MD [address] [place], [place] [phone] Ascending aorta dilatation (CMS/HCC) (Primary Dx); Pulmonary emphysema, unspecified emphysema type (CMS/HCC); Tobacco dependence syndrome; Essential hypertension; Dyslipidemia; Cardiac risk counseling; Recurrent major depression in partial remission (CMS/HCC); Tubular adenoma; Breast cancer screening by mammogram; Dietary counseling; Exercise counseling; Class 1 obesity due to excess calories with serious comorbidity and body mass index (BMI) of 32.0 to 32.9 in adult; Encounter for immunization; Low back pain, unspecified back pain laterality, unspecified chronicity, unspecified whether sciatica present; Bilateral foot pain; Difficulty in walking; Attention deficit hyperactivity disorder (ADHD), unspecified ADHD type; Vitamin B12 deficiency; Vitamin D deficiency; Primary hypertension; Other specified health status; Iron deficiency Social History Tobacco Use Types Packs/Day Years Used Date Smoking Tobacco: Some Days Cigarettes Passive Smoke Exposure: Past Smokeless Tobacco: Never Tobacco Cessation:Ready to Q uit: Not Asked; Counseling Given: Not Answered Alcohol Use Standard Drinks/Week Comments Not Currently 0 (1 standard drink = 0.6 oz pur e alcohol) Depression Answer Date Recorded Patient Health Questionnaire-9 Score 13 12/16/2024 Patient Health Questionnaire-9 Score 13 12/16/2024 Last PHQ-9: Questionnaire Data Not on file 0 12/16/2024 Housing Stability Answer Date Recorded What is your housing situation today? I have estela garcia 12/06/[address] you li ve. Do you have problems with any of the following? None of the above 12/06/2024 Food Insecurity Answer Date Recorded Within the past 12 months, y ou worried that your food would run out before you got money to buy more: Sometimes True 2024 Within the past 12 months,th e food you bought just didn't last and you didn't have enough money to get more: Sometimes True 12/06/2024 Transportation Answer Date Recorded In the past 12 months, has l ack of transportation kept you from medical appts, meetings, work or from getting things needed for daily living? No 12/06/2024 Utilities Answer Date Recorded In the past 12 months, has t he electric, gas, oil or water company threatened to shut off services in your home? No 12/06/2024 Depression Answer Date Recorded Patient Health Questionnaire-2 Score 3 12/16/2024 Internet Access Answer Date Recorded Internet Access Q1 Yes 12/06/2024 Internet Access Q2 Not on file 12/06/2024 Comments Unknown Sex and Gender Information Value Date Recorded Sex Assigned at Female 07/11/2022 10:15 AM EDT Legal Sex Female 10:15 AM EDT Gender Identity Choose not to disclose 10:15 AM EDT Sexual Orientation Choose not to disclose 2021 10:15 AM EDT documented as of this encounter Last Filed Vital Signs Vital Sign Reading Time Taken Comments Blood Pressure 128/74 12/16/2024 10:29 AM EDT Pulse 73 12/16/2024 10:29 AM EDT Temperature 36.1 ??C (96.9 ??F) 12/16/2024 10:29 AM E DT Respiratory Rate 18 12/16/2024 10:29 AM EDT Oxygen Saturation 97% 12/16/2024 10:29 AM EDT Inhaled Oxygen Concentration - - Weight 92.8 kg (204 lb 9.6 oz) 12/16/2024 10:29 AM EDT Height 168.9 cm (5' 6.5 ) 12/16/2024 10:29 AM ED T Body Mass Index 32.53 12/16/2024 10:29 AM EDT documented in this encounter Patient Instructions * Patient Instructions* Gillian Randolph MD - 12/16/2024 10:30 AM EDT Go to medical records in the basement for Disability paperwork Pharmacy for Shingles and RSV Lab for blood work documented in this encounter Plan of Treatment Scheduled Orders Name Type Priority Associated Diagnoses Orde r Schedule Albumin, Random Urine W/Creatinine Lab Routine Primary hypertension Expected: 12/16/2024 (Approximate), Expires: 12/16/2025 Hepatic Function Panel Lab Routine Dyslipidemia Expected: 12/16/2024 (Approximate), Expires: 12/16/2025 Lipid Panel, Standard Lab Routine Dyslipidemia Expected: 12/16/2024 (Approximate), Expires: 12/16/2025 Basic Metabolic Panel Lab Routine Essential hypertension Expected: 12/16/2024 (Approximate), Expires: 12/16/2025 Vitamin D, 25-Hydroxy, Total, Immunoassay Lab Routine Vitamin D deficiency Expected: 12/16/2024 (Approximate), Expires: 12/16/2025 Vitamin B12/Folate, Serum Panel Lab Routine Vitamin B12 deficiency Expected: 12/16/2024, Expires: 12/16/2025 CBC auto differential Lab Routine Iron deficiency Expected: 12/16/2024 (Approximate), Expires: 12/16/2025 Ferritin Lab Routine Iron deficiency Expected: 12/16/2024, Expires: 12/16/2025 TSH with Reflex to Free T4 Lab Routine Iron deficiency Expected: 12/16/2024 (Approximate), Expires: 12/16/2025 Iron And Total Iron Binding Capacity Lab Routine Iron deficiency Expected: 12/16/2024, Expires: 12/16/2025 documented as of this encounter Visit Diagnoses Diagnosis Ascending aorta dilatation (CMS/HCC)- Primary Thoracic aneurysm without mention of rupture Pulmonary emphysema, unspecified emphysema type (CMS/HCC) Tobacco dependence syndrome Tobacco use disorder Essential hypertension Unspecified essential hypertension Dyslipidemia Other and unspecified hyperlipidemia Cardiac risk counseling Recurrent major depression in partial remission (CMS/HCC) Major depressive disorder, recurrent episode, in partial or unspecified remission Tubular adenoma Benign neoplasm of unspecified site Breast cancer screening by mammogram Dietary counseling Dietary surveillance and counseling Exercise counseling Class 1 obesity due to excess calories with serious comorbidity and body mass index (BMI) of 32.0 to 32.9 in adult Encounter for immunization Low back pain, unspecified back pain laterality, unspecified chronicity, unspecified whether sciatica present Bilateral foot pain Difficulty in walking Attention deficit hyperactivity disorder (ADHD), unspecified ADHD type Vitamin B12 deficiency Other B-complex deficiencies Vitamin D deficiency Primary hypertension Unspecified essential hypertension Other specified health status Iron deficiency Disorders of iron metabolism documented in this encounter Additional Health Concerns Assessment Noted Time PHQ-9 Depression Total Score: 13 12/16/ 025 10:34 AM EDT documented as of this encounter Care Teams Cigarette Making Machine Catcher Relationship Specialty Start Date End Date Gillian Randolph MD [address] [place] [address] PCP - General Family Medicine 09/11/18 Nikos Can [address] [place] [address] Cardiology 09/24/24 Kang Gayle MD [address] [place] [address] Rheumatology 09/24/24 documented as of this encounter
--- OUTSIDE RECORDS SUMMARY | 2024-12-16 14:13 | XMS_ITS | Encounter Summary ---
Author Organization [employer] Address [address] [place] [address] 7t [place] [address] Care Team Providers Care Environmental Project Manager Name Role Phone Gillian Randolph MD Primary Care Provider +1- [phone] Nikos Can Unavailable Kang Gayle MD Unavailable Encounter Details Date Type Department Care Team (Late st Contact Info) Description 03/15/2023 Orders Only [facility] [address] [place] [address] Marilu Bell LPN Social History Tobacco Use [...] as of this encounter Plan of Treatment Not on file documented as of this encounter Visit Diagnoses Not on filedocumented in this encounter Care Teams Environmental Project Manager Relationship Specialty Start Date End Date Gillian Randolph MD [address] [place] [address] PCP - General Family Medicine 09/11/18 Nikos Can [address] 3rd [place] [address] Cardiology 09/24/24 Kang Gayle MD [address] [place] [address] Rheumatology 09/24/24 documented as of this encounter
--- OUTSIDE RECORDS SUMMARY | 2024-12-16 14:14 | XMS_ITS | Clinical Summary ---
Author Organization [employer] Address [address] [place] [address] 7t [place] [address] Care Team Providers Care Snaker Tractor Driver Name Role Phone Gillian Randolph MD Primary Care Provider +1- [phone] Nikos Can Unavailable Kang Gayle MD Unavailable Allergies No known active allergies Medications atorvastatin (Lipitor) 40 MG tabletIndication s:Dyslipidemia Take 1 tablet (40 mg) by mouth in the morning. 90 tablet 3 11/27/19 24 Active cholecalciferol (Vitamin D-3) 50 MCG (1999) capsuleIndicatio ns:Osteoporosis, unspecified osteoporosis type, unspecified pathological fracture presence Take 1 capsule (50 mcg) by mouth in the morning. 90 capsule 3 11/27/19 24 Active magnesium 250 MG tabletIndication s:Hypomagnesemia TAKE 1 TABLET BY MOUTH EVERY NIGHT AT BEDTIME 90 tablet 05/31/20 24 Active guanFACINE (Tenex) 1 MG tabletIndication s:Attention deficit hyperactivity disorder (ADHD), unspecified ADHD type Take 1 tablet (1 mg) by mouth Once per day. 30 tablet 11 12/17/19 25 026 Active hydroCHLOROthiaz jessa (HYDRODiuril) 25 MG tabletIndication s:Essential hypertension Take 1 tablet (25 mg) by mouth in the morning. 90 tablet 12/17/19 25 Active sertraline (Zoloft) 100 MG tabletIndication s:Recurrent major depression in partial remission (CMS/HCC) Take 1 tablet (100 mg) by mouth Once per day. 90 tablet 3 12/17/19 25 026 Active varenicline (Chantix) 1 MG tabletIndication s:Pulmonary emphysema, unspecified emphysema type (CMS/HCC) TAKE ONE TABLET BY MOUTH TWICE A DAY AFTER MEALS WITH A FULL GLASS OF WATER 180 tablet 3 12/17/19 25 Active Tirzepatide-Weig ht Management (Zepbound) 2.5 MG/0.5ML solution auto-injectorInd ications:Obesity Inject 0.5 mL (2.5 mg) under the skin 1 (one) time per week. Start 5.5 mg weekly x 4 weeks, then increased to 5 mg x 4 weeks, then increase to 7.5 mg weekly 2 mL 1 12/17/19 25 025 Active Cyanocobalamin (B-12) 1000 MCG capsule Take 1 capsule by mouth in the morning. 07/26/20 22 025 Discontinued( ed list cleanup (will not trigger notification to Pharmacy)) hydroCHLOROthiaz jessa (HYDRODiuril) 25 MG tablet Take 1 tablet (25 mg) by mouth in the morning. 30 tablet 11/08/19 025 Discontinued calcium carbonate (Tums) 500 MG chewable tabletIndication s:Osteoporosis, unspecified osteoporosis type, unspecified pathological fracture presence Take 2 tabs po daily 180 tablet 3 11/27/19 24 025 Discontinued alendronate (Fosamax) 70 MG tabletIndication s:Osteoporosis, unspecified osteoporosis type, unspecified pathological fracture presence Take 1 tablet (70 mg) by mouth every 7 (seven) days. Take in the morning with a full glass of water, on an empty stomach, and do not take anything else by mouth or lie down for the next 30 min. 4 tablet 11/27/19 24 025 Discontinued(A lternate therapy) varenicline (Chantix) 1 MG tablet TAKE 1 TABLET BY MOUTH TWICE DAILY AFTER MEALS WITH GLASS OF WATER 60 tablet 05/23/20 24 025 Discontinued sertraline (Zoloft) 50 MG tabletIndication s:Depression, unspecified depression type Take 1 tablet (50 mg) by mouth Once per day. 90 tablet 3 05/31/20 24 025 Discontinued sertraline (Zoloft) 100 MG tablet Take 1 tablet (100 mg) by mouth Once per day. 90 tablet 3 07/06/20 24 025 Discontinued(R eorder (will not trigger notification to Pharmacy)) hydroCHLOROthiaz jessa (HYDRODiuril) 25 MG tablet TAKE ONE TABLET BY MOUTH EVERY MORNING 90 tablet 3 11/23/19 25 025 Discontinued(R eorder (will not trigger notification to Pharmacy)) varenicline (Chantix) 1 MG tablet TAKE ONE TABLET BY MOUTH TWICE A DAY AFTER MEALS WITH A FULL GLASS OF WATER 180 tablet 3 11/23/19 25 025 Discontinued(R eorder (will not trigger notification to Pharmacy)) Active Problems Problem Noted Date Diagnosed Date Breast cancer screening by mammogram 12/16/2024 Overview (12/16/2024): Mammogram ordered 09/27/24 Cardiac risk counseling 01/03/2024 Overview (12/16/2024): Calculated 12/16/24: Very High Risk The 10-year ASCVD risk score (Nayan BACON, et al., 2019) is: 30.1% Values used to calculate the score: Age: 69 years Sex: Female Is Non- : No Diabetic: No Tobacco smoker: Yes Systolic Blood Pressure: 159 mmHg Is BP treated: Yes HDL Cholesterol: 50 mg/dL Total Cholesterol: 318 mg/dL Lab Results Component Value Date LDLCHOL 116 (H) 09/08/2020 -Tobacco cessation: encouraged -Statin therapy: atorvastatin 40, restarted 11/17/2023, check FLP 2 months and increase statin if LDL > 100 -Importance of moderate physical activity and nutrition interventions discussed -seen by [facility] 02/11/[address] Nikos Can MD, stress testordered Ascending aorta dilatation 01/01/2024 Overview (12/15/2024): -CT for lung cancer screening 12/20/23 revealed stable 4.1 cm dilatation of ascending aorta -referral for vascular surgery placed 01/01/24 -seen by [facility] 02/12/[address] Nikos Can MD, stress testordered [...] 11/08/23 Hypomagnesemia 11/08/2023 Iron deficiency anemia 11/08/2023 Overview (12/16/2024): Lab Results Component Value Date FERRITIN 9 (L) 11/08/2023 HGB 12.0 12/13/2023 HGB 13.1 11/08/2023 HGB 12.5 09/08/2020 HEMATOCRIT 38.4 09/08/2020 Post-menopausal 11/08/2023 Other specified health status 07/18/2023 Overview (12/16/2024): -next physical exam due after 11/08/24 -eye care facilitated by -dental home is [facility] -health care proxy filed 12/16/24 Assessment & Plan (11/08/2023 2:17 PM EST): [...] daily 11/08/23 Tobacco dependence syndrome 09/27/2018 Overview (12/16/2024): -Cigg/day: -Age started: early teens -Total years smokin -Pack year history: 50 pack-year Encouraged smoking cessation resources such as pharmacomtherapy, [facility] smoking cessation group, and [facility] pharmacy smoking cessation clinic Discussed USPSTF recommends annual lung cancer screening with low dose CT in people who meet the following criteria: -ages 50 to 80 years. -have a 20 pack-year smoking history. -currently smoke cigarettes or quit within the past 15 years. -LDCT: Referred to thoracic surgery on 07/07/22 for screening. Done 12/20/23 IMPRESSION: No concerning evidence of malignancy. There are a few unchanged pulmonary micronodules. Mild emphysema and stable 4.1 cm dilatation ascending aorta. Maximal dimension for a patient of 67 years of age is 4.2 cm. -repeat in 12 months. Assessment & Plan (11/08/2023 3:31 PM EST): -Cigg/day: Up to 6 -Age started: early teens -Total years smokin -Pack year history: 50 pack-year Encouraged smoking cessation resources such as pharmacomtherapy, [facility] smoking cessation group, and [facility] pharmacy smoking cessation clinic Discussed USPSTF recommends [...] Encounters Date Type Department Care Team Description 12/16/2024 10:30 AM EDT Office Visit [facility] [address] [place], [place] [phone] Gillian Randolph MD Ascending aorta dilatation (CMS/HCC) (Primary Dx); Pulmonary [...] hypertension; Other specified health status; Iron deficiency 12/16/2024 Telephone [facility] [address] [place] [address] Gillian Randolph MD Appointment Request 12/16/[address] [address] Gillian Randolph MD 12/16/[address] [address] Gillian Randolph MD 12/16/2024 Travel 12/06/2024 Patient Outreach [address] [address] Gillian Randolph MD 12/06/2024 Patient Outreach [address] [address] Gillian Randolph MD Pre-visit Planning (SDOH Screening positive and Tobacco screening positive) 11/22/[address] [address] Gillian Randolph MD 10/23/[address] [address] Carmel Rolle [place] Rescherdule appointment for 10/23/24 (I booked the appt on 12/16/2024 for a Physical.) 10/23/2024 Travel 10/19/2024 Travel 10/10/2024 Patient Outreach [address] [address] Gillian Randolph MD Pre-visit Planning (Pre-visit planning - LVM ) 09/27/2024 Telephone [facility] [address] [place] [address] Jerri Verma [place] Breast Cancer Screening 09/24/2024 Orders Only [address] [address] Gillian Randolph MD Dyslipidemia (Primary Dx); Hypomagnesemia; Iron deficiency anemia, unspecified iron deficiency anemia type; Age-related osteoporosis without current pathological fracture; Essential hypertension; Prediabetes; Chronic myofascial pain; Screening mammogram for breast cancer from Last 3 Months Immunizations Name Administration Dates Next Due Hep A, Adult 11/08/2023 Influenza Injectable Quadriv alant Preservative Free IIV4 MDCK 08/10/2021 Influenza injectable quadriv alent IIV4 with preservative 06/14/2019,07/30/2018 Influenza injectable quadrivalent preservative f ree 07/02/2020,08/25/2016 Influenza, IIV3, injectable 07/04/2014 MMR 04/13/1999 Pfizer Covid-19 Vaccine 12+ 12/16/2024, Pneumococcal Conjugate PCV 13 04/13/1999 Pneumococcal Conjugate PCV 20 11/08/2023 Pneumococcal Polysaccharide PPSV23 07/04/2014 Tdap 12/16/2024,07/04/2014 Family History Medical History Relation Name Comments Rheum arthritis Daughter Colon cancer Father Diabetic kidney disease Maternal Grandmother Heart disease Maternal Grandmother Lung cancer Mother Relation Name Status Comments Daughter Father Maternal Grandmother Mother Social History Tobacco Use Types Packs/Day [...] Mass Index 32.53 12/16/2024 10:29 AM EDT Plan of Treatment Health Maintenance Due Date Last Done Comments CT Colonography 1956 FIT DNA/Cologuard 1956 FIT 1956 FOBT 1955 Sigmoidoscopy 1956 Zoster Vaccines (1 of 2) 2006 RSV Patients and Patients Aged 60 years or older (1 - Risk 60-74 years 1-dose series) 2016 Colonoscopy 02/08/2024 02/07/2019 Colorectal Cancer Screening 02/08/2024 Influenza Vaccine (#1) 2024 , 07/02/2020, 06/14/2019, Additional history exists Diabetes: Hemoglobin A1C 11/08/2024 11/08/2023 Depression Monitoring (PHQ-9) 06/17/2025 12/16/2024, 12/16/2024 SDOH Screening 12/06/2025 12/06/2024 Alcohol/Substance Use Screening 12/16/2025 12/16/2024 Depression Screening 12/16/2025 12/16/2024, 12/17/19 Tobacco Screening 12/16/2025 12/16/2024 Mammogram 10/14/2026 10/14/2024, 07/12, 07/23/2022, Additional history exists Lipid Panel 11/08/2028 11/08/2023, 07/12, 09/08/2020 DTaP/Tdap/Td Vaccines (3 - Td or Tdap) 12/16/2034 12/16/2024, 07/04/2014 Hepatitis A Vaccines Aged Out 11/08/2023 No long er eligible based on patient's age to complete this topic Pneumococcal Vaccine: 50+ Years Completed 11/08/2023, 07/04/2014, 04/13/1999 Hepatitis C Screening Completed 12/13/2023 COVID-19 Vaccine Completed 12/16/2024, , 08/10/2021, Additional history exists HIB Vaccines Aged Out No longer eligi [...] Priority Date/Time Associated Diagnosis Comments MAMMOGRAPHY Routine 10/14/2024 HEPATITIS PANEL, GENERAL Routine 12/13/2023 4:08 PM EDT POCT GLYCATED HEMOGLOBIN, TOTAL Routine 11/08/2023 3:25 PM EST Diabetic retinopathy screening LIPID PANEL, STANDARD Routine 11/08/2023 3:20 PM EST Dyslipidemia COLONOSCOPY Routine 02/07/2019 from Last 3 Months or Most Recently Relevant to Health Maintenance Results * Mammography (10/14/2024) Pathologist [facility] Mammogram BIRADS 1 Normal, Abnormal, BIRADS 1 , BIRADS 2 [facility] Comment:normal Anatomical Region Laterality Modality Other 10/14/2024 Historical Provider HEALTH MAINTENANCE Final Result * (ABNORMAL) Hepatitis Panel, General (12/13/2023 4:08 PM EDT) Pathologist [facility] Hepatitis A IgM Nonreactive Nonreactive [facility] Comment:IgM antibodies to STARR V not detected; does not exclude earlyacute or recovered HAV infection. ~Hepatitis B Surface Antibody REACTIVE Nonreactive [facility] Comment:REACTIVE: > 11.99 mI U/mL Hepatitis B Core Antibody Reactive Nonreactive [facility] Comment:Presumptive evidence of anti-HBc. Hepatitis C Antibody Reactive(A) Nonreactive [facility] Comment:Presumptive evidence of antibodies to HCV. Hepatitis B Surface Ag Negative Negative [facility] 12/13/2023 4:08 PM EDT 12/13/2023 4:08 PM EDT Generic External Data Provider LAB BLOOD ORDERAB LES Final Result [facility] [address] [place] [phone] * (ABNORMAL) POCT A1C (11/08/2023 3:25 PM EST) [facility] Hemoglobin A1C 6.1(A) 4.0 - 6.0 % QC Media Lot # [id number] Lot# Expiration Date Blood 11/08/2023 3:25 PM EST Gillian Randolph MD POINT OF CARE TEST ENTER/E DIT ORDERABLES Final Result * (ABNORMAL) Lipid Panel, Standard (11/08/2023 3:20 PM EST) [facility] Triglycerides 394(H) <150 mg/dL [facility] Comment:Desirable Triglyceri de: less than 150 mg/dLBorderline High Triglyceride 150-199 mg/dLHigh Triglyceride: 200-499 mg/dLVery High Triglyceride: greater than or equal to 5OO mg/dL Cholesterol 318(H) <200 mg/dL [facility] Comment:Desirable Cholestero l: less than 200 mg/dLBorderline High Cholesterol: 200-239 mg/dLHigh Cholesterol: greater than 239 mg/dL LDL Cholesterol Calculated 190(H) <100 mg/dL [facility] Comment:Desirable LDL: less than 100 mg/dLNear Optimal/Above Optimal LDL: 110- 129 mg/dLBorderline High LDL: 130-159 mg/dLHigh LDL: 160-189 mg/dLVery High LDL: greater than or equal to 190 mg/dL HDL Cholesterol 50 >40 mg/dL [facility] Comment:Desirable HDL: great er than 40 mg/dL Note: This HDL assay may give artificially low results in patients with liver disease. Blood Venous blood specimen / Unknown 11/08/2023 3:20 PM EST 11/08/2023 4:13 PM EST Gillian Randolph MD LAB BLOOD ORDERABLES Final Result [facility] [address] [place] [phone] * Colonoscopy (02/07/2019) Colonoscopy tubular adenoma with Dr. Harper Historical Provider HEALTH MAINTENANCE Final Result from Last 3 Months or Most Recently Relevant to Health Maintenance Insurance Care Teams Snaker Tractor Driver Relationship Specialty Start Date End Date Chaves, MD Gillian [address] [place] [address] PCP - General Family Medicine 09/11/18 Nikos Can [address]rd [place] [address] Cardiology 09/24/24 Kang Gayle MD [address] [place] [address] Rheumatology 09/24/24
--- OUTSIDE RECORDS SUMMARY | 2024-12-16 14:14 | XMS_ITS | Encounter Summary ---
Author Organization [employer] Address [address] [place] [address] [address]t [place] [address] Care Team Providers Care Tire Regrooving Machine Operator Name Role Phone Gillian Randolph MD Primary Care Provider +1- [phone] Nikos Can Unavailable Kang Gayle MD Unavailable Reason for Visit * Reason Onset Date Comments Appointment Request 12/16/2024 Encounter Details Date Type Department Care Team ([facility] st Contact Info) Description 12/16/2024 Telephone [facility] [address] [place], [place] [phone] Gillian Randolph MD [address] [place], [place] [phone] Appointment Request Social History Tobacco Use Types Packs/Day Years Used Date Smoking Tobacco: Some Days Cigarettes Passive Smoke Exposure: Past Smokeless Tobacco: Never Alcohol Use Standard Drinks/Week Comments Not Currently [...] encounter Miscellaneous Notes * Telephone Encounter - Britney Cano - 12/16/2024 12:55 PM EDT Called Patient x2, unable to leave vm (not taking calls at this time). Called tp schedule Patient a15 min televisit with PCP in January for zepbound. If Patient calls back ok to schedule. documented in this encounter Plan of Treatment Not on file documented as of this encounter Visit Diagnoses Not on filedocumented in this encounter Additional Health Concerns Assessment Noted Time PHQ-9 Depression Total Score: 13 025 10:34 AM EDT documented as of this encounter Care Teams Tire Regrooving Machine Operator Relationship Specialty Start Date End Date Gillian Randolph MD [address] [place] [address] PCP - General Family Medicine 09/11/18 Nkios Can [address] [place] [address] 3rd [place] [address] Cardiology 09/24/24 Kang Gayle MD [address] [place] [address] Rheumatology 09/24/24 documented as of this encounter
--- OUTSIDE RECORDS SUMMARY | 2024-12-16 14:14 | XMS_ITS | Encounter Summary ---
Author Organization [employer] Address [address] [place] [address] 7t [place] [address] Care Team Providers Care Solutions Engineer Name Role Phone Gillian Randolph MD Primary Care Provider +1- [phone] Nikos Can Unavailable Kang Gayle MD Unavailable Encounter Details Date Type Department Care Team (Late st Contact Info) Description 12/16/2024 Abstract [facility] [address] [place], [place] [phone] Gillian Randolph MD [address] [place], [place] [phone] Social History Tobacco Use Types Packs/Day Years [...] on file documented as of this encounter Procedures Procedure Name Priority Date/Time Associated Diagnosis Comments MAMMOGRAPHY Routine 10/14/2024 documented in this encounter Results * Mammography (10/14/2024) Mammogram BIRADS 1 Normal, Abnormal, BIRADS 1 , BIRADS 2 [facility] Comment:normal Anatomical Region Laterality Modality Other 10/14/2024 Historical Provider HEALTH MAINTENANCE Final Result documented in this encounter Visit Diagnoses Not on filedocumented in this encounter Additional Health Concerns Assessment Noted Time PHQ-9 Depression Total Score: 13 025 10:34 AM EDT documented as of this encounter Care Teams Solutions Engineer Relationship Specialty Start Date End Date Gillian Randolph MD [address] [place] [address] PCP - General Family Medicine 09/11/18 Nikos Can [address]rd [place] [address] Cardiology 09/24/24 Kang Gayle MD [address] [place] [address] Rheumatology 09/24/24 documented as of this encounter
--- OUTSIDE RECORDS SUMMARY | 2024-12-16 14:14 | XMS_ITS | Encounter Summary ---
Author Organization [employer] Address [address] [place] [address] 7t [place] [address] Care Team Providers Care Recovery Assistant Name Role Phone Gillian Randolph MD Primary Care Provider +1- [phone] Nikos Can Unavailable Kang Gayle MD Unavailable Encounter Details Date Type Department Care Team (Late st Contact Info) Description 01/03/2023 Orders Only [facility] [address] [place] [address] Marilu Bell LPN Social History Tobacco Use [...] on filedocumented in this encounter Care Teams Recovery Assistant Relationship Specialty Start Date End Date Gillian Randolph MD [address] [place] [address] PCP - General Family Medicine 09/11/18 Nikos Can [address]rd [place] [address] Cardiology 09/24/24 Kang Gayle MD [address] [place] [address] Rheumatology 09/24/24 documented as of this encounter
--- OUTSIDE RECORDS SUMMARY | 2024-12-16 14:14 | XMS_ITS | Encounter Summary ---
Author Organization [employer] Address [address] [place] [address] 7t [place] [address] Care Team Providers Care Digital Specialist Name Role Phone Gillian Randolph MD Primary Care Provider +1- [phone] Nikos Can Unavailable Kang Gayle MD Unavailable Encounter Details Date Type Department Care Team (Late st Contact Info) Description 11/08/2022 Abstract [facility] [address] [place], [place] [phone] Gillina Randolph MD [address] [place], [place] [phone] Social History Tobacco Use Types Packs/Day Years [...] Pap Smear (08/25/2016 12:00 AM EST) Swab Historical Provider LAB CYTOLOGY ORDERABLES F inal Result IMAGING documented in this encounter Visit Diagnoses Not on filedocumented in this encounter Care Teams Digital Specialist Relationship Specialty Start Date End Date Gillian Randolph MD [address] [place] [address] PCP - General Family Medicine 09/11/18 Nikos Can [address]rd [place] [address] Cardiology 09/24/24 Kang Gayle MD [address] [place] [address] Rheumatology 09/24/24 documented as of this encounter
--- OUTSIDE RECORDS SUMMARY | 2024-12-16 14:14 | XMS_ITS | Encounter Summary ---
Author Organization [employer] Address [address] [place] [address] [place] [address] Care Team Providers Care Geothermal Operating Engineer Name Role Phone Gillian Randolph MD Primary Care Provider +1- [phone] Nikos Can Unavailable Kang Gayle MD Unavailable Reason for Visit * Reason Onset Date Comments Medication Question 05/31/2024 Encounter Details Date Type Department Care Team (Late st Contact Info) Description 05/31/2024 Telephone [facility] [address] [place], [place] [phone] Gillian Randolph MD [address] [place], [place] [phone] Medication Question Social History Tobacco Use Types Packs/Day Years Used Date Smoking Tobacco: Some Days Cigarettes Comments Unknown Sex and Gender Information Value Date Recorded Sex Assigned at Female 07/11/2022 10:15 AM EDT Legal Sex Female 10:15 AM EDT Gender Identity Choose not to disclose 2 10:15 AM EDT Sexual Orientation Choose not to disclose 2021 10:15 AM EDT documented as of this encounter Miscellaneous Notes * Telephone Encounter - Vinita Palacio - 05/31/2024 11:46 AM EDT Tc from pt requesting med refill for medication sertraline (Zoloft) 50 MG tablet . Medication is not on recent med list. Pharmacy: [facility] [address] [place] [address] documented in this encounter Plan of Treatment Not on file documented as of this encounter Visit Diagnoses Not on filedocumented in this encounter Care Teams Geothermal Operating Engineer Relationship Specialty Start Date End Date Gillian Randolph MD [address] [place] [address] PCP - General Family Medicine 09/11/18 Nikos Can [address]rd [place] [address] Cardiology 09/24/24 Kang Gayle MD [address] [place] [address] Rheumatology 09/24/24 documented as of this encounter
--- OUTSIDE RECORDS SUMMARY | 2024-12-16 14:14 | XMS_ITS | Encounter Summary ---
Author Organization [employer] Address [address] [place] [address] 7t [place] [address] Care Team Providers Care Environmental Education Specialist Name Role Phone Gillian Randolph MD Primary Care Provider +1- [phone] Nikos Can Unavailable Kang Gayle MD Unavailable Encounter Details Date Type Department Care Team (Latest Contact Info) Description 12/16/2024 Travel Social History Tobacco Use Types Packs/Day Years [...] documented as of this encounter Care Teams Environmental Education Specialist Relationship Specialty Start Date End Date Gillian Randolph MD [address] [place] [address] PCP - General Family Medicine 09/11/18 Nikos Can [address]rd [place] [address] Cardiology 09/24/24 Kang Gayle MD [address] [place] [address] Rheumatology 09/24/24 documented as of this encounter
--- OUTSIDE RECORDS SUMMARY | 2024-12-16 14:14 | XMS_ITS | Encounter Summary ---
Author Organization [employer] Address [address] [place] [address] [address] [place] [address] Care Team Providers Care Rescue Worker Name Role Phone Gillian Randolph MD Primary Care Provider +1- [phone] Nikos Can Unavailable Kang Gayle MD Unavailable Encounter Details Date Type Department Care Team (Late st Contact Info) Description 12/28/2023 Telephone [facility] [address] [place], [place] [phone] Gillian Randolph MD [address] [place], [place] [phone] Social History Tobacco Use Types Packs/Day Years [...] review message below. Currently [place] [facility] [place] aCT scan for lung cancer screening done on 12/20/23 indicating stable 4.1 cm dilation of ascending aorta. * Telephone Encounter - Sarah Alvarez LPN - 12/28/2023 8:57 AM EDT Critical result line call received at this time. Nikki with [facility] calling to report critical findings. Ct Scan with incidental findings of Thoracic aneurysm. Please update PCP now and follow with patient. Full report faxed to [phone] now. documented in this encounter Plan of Treatment Not on file documented as of this encounter Visit Diagnoses Not on filedocumented in this encounter Care Teams Rescue Worker Relationship Specialty Start Date End Date Gillian Randolph MD [address] [place] [address] PCP - General Family Medicine 09/11/18 Nikos Can [address] [place] [address] Cardiology 09/24/24 Kang Gayle MD [address] [place] [address] Rheumatology 09/24/24 documented as of this encounter
--- OUTSIDE RECORDS SUMMARY | 2024-12-16 14:14 | XMS_ITS | Encounter Summary ---
Author Organization [employer] Address [address] [place] [address] [address] [place] [address] Care Team Providers Care Glass Tinter Name Role Phone Gillian Randolph MD Primary Care Provider +1- [phone] Nikos Can Unavailable Kang Gayle MD Unavailable Encounter Details Date Type Department Care Team (Late st Contact Info) Description 12/16/2024 Telephone [facility] [address] [place], [place] [phone] Gillian Randolph MD [address] [place], [place] [phone] Social History Tobacco Use Types Packs/Day Years [...] encounter Miscellaneous Notes * Telephone Encounter - Gillian Randolph MD - 12/16/2024 11:06 AM EDT Please start prior auith on zepbound documented in this encounter Plan of Treatment Not on file documented as of this encounter Visit Diagnoses Not on filedocumented in this encounter Additional Health Concerns Assessment Noted Time PHQ-9 Depression Total Score: 13 025 10:34 AM EDT documented as of this encounter Care Teams Glass Tinter Relationship Specialty Start Date End Date Gillian Randolph MD [address] [place] [id number] PCP - General Family Medicine 09/11/18 Nikos Can [address] [place] [address] Cardiology 09/24/24 Kang Gayle MD [address] [place] [address] Rheumatology 09/24/24 documented as of this encounter
== END 2024-12-16 11:44 | disposition home or self-care (01) ==
LOC: HO.HHCL 11:43
PROVIDERS: Visit Provider Internal Medicine Cardiovascular Disease
DX: E78.5 Hyperlipidemia, unspecified (principal)
CPT/HCPCS: 36415; 80061

== ENCOUNTER 2025-04-29 13:24 | Outpatient (REF) | payer OTHER, SELFPAY ==
--- NOTE | ~2025-04-29 | CT_ITS ---
CLINICAL HISTORY: F17.210 - Nicotine dependence, cigarettes, uncomplicated Examination CT lung cancer screening History Screening examination performed for pulmonary nodules Technique Axial CT images of the chest using low-dose technique. Effective radiation dose total: 63.9 mGy-cm, CTDIvol 1.6 mGy. Referring provider counseled the patient on shared decision-making for LDCT screening. Additional counseling was provided on smoking cessation. Comparison: CT/REG/AR/SR - CT LUNG SCREENING - 12/20/23 12:[address]/AR/SR - CT LUNG SCREENING - 11/18/22 13:39 EST Findings: Lungs: Stable solid pulmonary nodules measure up to 2 mm (series 6, image 87, right lower lobe). Paraseptal emphysema measures up to 1.9 cm. Mild centrilobular emphysema. Mild increased subpleural reticulation. Mild amount scarring at the right lung base with associated mild bronchiectasis. Coronary artery calcifications: Severe Other: Stable dilation of the ascending aorta, measuring 4.1 cm Limited upper abdomen: Small hiatal hernia. Status post Debbie-en-Y gastrojejunostomy and cholecystectomy Impression: LungRADS 2 - Benign Appearance: Continue annual screening with low dose Chest CT in 12 months. ##L2# Category 1: Normal; continue annual screening Category 2: Benign appearance or behavior, continue annual screening Category 3: Probably benign, [address] recommended Category 4A: Suspicious, [address] recommended; may consider PET/CT Category 4B: Suspicious, Additional diagnostics and/or tissue sampling recommended Category 4X: Suspicious, Additional diagnostics and/or tissue sampling recommended Category 0: Recalls (incomplete screen due to Incomplete coverage, Noise, Respiratory motion, Expiration, Obscured by acute abnormality) This document has been electronically signed by: Umu Hogue MD on 04/30/2025 21:40:26
--- OUTSIDE RECORDS SUMMARY | 2025-04-29 14:39 | XMS_ITS | Encounter Summary ---
Author Organization [employer] Address [address] [place] [address] [address] [place] [address] Care Team Providers Care Oil Mixer Name Role Phone Gillian Randolph MD Primary Care Provider +1- [phone] Nikos Can Unavailable Kang Gayle MD Unavailable Encounter Details Date Type Department Care Team (Late st Contact Info) Description 03/15/2023 Orders Only [facility] [address] [place] [address] Marilu Bell LPN Social History Tobacco Use [...] on filedocumented in this encounter Care Teams Oil Mixer Relationship Specialty Start Date End Date Gillian Randolph MD [address] [place] [address] PCP - General Family Medicine 09/11/18 Nikos Can [address] [place] [address] Cardiology 09/24/24 Kang Gayle MD [address] [place] [address] Rheumatology 09/24/24 MD [facility] Optometry 01/27/25 documented as of this encounter
== END 2025-04-29 13:25 | disposition home or self-care (01) ==
LOC: HO.CT 13:24
PROVIDERS: PCP Family Medicine; Visit Provider Physician Assistant Medical
DX: Z12.2 Encounter for screening for malignant neoplasm of respiratory organs (principal); F17.210 Nicotine dependence, cigarettes, uncomplicated
CPT/HCPCS: 71271

== ENCOUNTER → 2025-04-29 13:26 | Outpatient (BNV) | payer OTHER, SELFPAY | PROVIDERS: PCP Family Medicine; Visit Provider Radiology Diagnostic Radiology | DX: F17.210 Nicotine dependence, cigarettes, uncomplicated (principal) | CPT/HCPCS: 71271 ==